=== PATIENT | male | born 1955 | race Hispanic/Latino ===

== ENCOUNTER 2018-09-07 13:05 | Inpatient (IN) | payer OTHER ==
[~2018-09-07] VITALS: Ht 167.6 cm; Wt 87.7 kg
--- OUTSIDE RECORDS SUMMARY | 2018-09-07 13:08 | XMS REPORT | Clinical Summary ---
Author Author MAD[facility] [place] Address Unknown Phone Unavailable Care Team Providers Care Real Estate Assessor Name Role Phone Sharpless PCP Unavailable Rafita Webb 31 Unavailable Allergies Comments Active Allergy Reactions Severity Noted Date Runny nose in contact with pollen, grass Seasonal Allergies Other (See 09/16/2017 Comments) Medications End Date Status Medication Sig Dispensed Refills Start Date Active metFORMIN (GLUCOPHAGE) Take 1,000 mg 0 1000 MG by mouth 2 tabletIndications: type 2 (two) times diabetes mellitus daily with breakfast and dinner. Active pravastatin (PRAVACHOL) Take 10 mg by 0 10 MG tabletIndications: mouth daily hyperlipidemia with dinner. Active glipiZIDE (GLUCOTROL) 5 Take 5 mg by 0 MG tabletIndications: mouth 2 (two) type 2 diabetes mellitus times daily with breakfast and dinner. Active terazosin (HYTRIN) 2 MG Take 2 mg by 0 capsuleIndications: mouth benign prostatic nightly. hyperplasia with lower urinary tract sx Active budesonide-formoterol Inhale 2 0 (SYMBICORT) 160-4.5 puffs by mcg/actuation inhaler mouth via inhaler 2 (two) times daily with breakfast and dinner. 09/24/2018 Active aspirin 81 MG chewable Take 1 tablet 30 tablet 11 tablet (81 mg total) 8 by mouth daily. 09/23/2018 Active atorvastatin (LIPITOR) 40 Take 1 tablet 30 tablet 11 MG tablet (40 mg total) 8 by mouth nightly. 09/24/2018 Active clopidogrel (PLAVIX) 75 Take 1 tablet 30 tablet 11 02/20/201 mg tablet (75 mg total) 8 by mouth daily. 09/23/2018 Active colchicine (COLCRYS) 0.6 Take 1 tablet 60 tablet 11 mg tablet (0.6 mg 8 total) by mouth 2 (two) times daily. 09/24/2018 Active furosemide (LASIX) 20 MG Take 1 tablet 20 tablet 0 tablet (20 mg total) 8 by mouth daily. 09/24/2018 Active lisinopril Take 1 tablet 30 tablet 11 (PRINIVIL,ZESTRIL) 2.5 MG (2.5 mg 8 tablet total) by mouth daily. 09/23/2018 Active metoprolol (LOPRESSOR) 50 Take 1 tablet 60 tablet 11 MG tablet (50 mg total) 8 by mouth 2 (two) times daily. 09/24/2018 Active spironolactone Take 1 tablet 30 tablet 11 (ALDACTONE) 25 MG tablet (25 mg total) 8 by mouth daily. 10/03/2017 traMADol (ULTRAM) 50 mg Take 1 tablet 30 tablet 0 tablet (50 mg total) 8 by mouth every 4 (four) hours as needed for up to 10 days. Max Daily Amount: 300 mg Active Problems Problem Noted Date ST elevation 09/18/2017 Coronary artery disease involving nonautologous biological coronary bypass 09/17/2017 graft with angina pectoris with documented spasm Acute postoperative pain 09/17/2017 S/P CABG x 2 09/17/2017 Ischemic cardiomyopathy 09/17/2017 Post-procedural fever 09/17/2017 Metabolic acidosis 09/17/2017 Acute respiratory insufficiency, postoperative 09/17/2017 Type 2 diabetes mellitus with hyperglycemia, without long-term current use 09/17/2017 of insulin CAD (coronary artery disease) 09/15/2017 Type 2 diabetes mellitus 09/15/2017 HLD (hyperlipidemia) 09/15/2017 HTN (hypertension) 09/15/2017 Seasonal allergic rhinitis 09/15/2017 Encounters Care Team Description Date Type Specialty Viral Moore MD Atherosclerosis of [place] coronary artery, angina presence unspecified, unspecified whether [place] or transplanted heart; S/P CABG (coronary artery bypass graft); S/P percutaneous transluminal coronary angioplasty 01/03/2018 Hospital Radiology Encounter Viral Moore MD Atherosclerosis of [place] coronary artery, angina presence unspecified, unspecified whether [place] or transplanted heart (Primary Dx); S/P CABG (coronary artery bypass graft); S/P percutaneous transluminal coronary angioplasty 12/17/2017 Outside Orders Central Scheduling 09/18/2017 Orders Only General Internal Medicine Gisselle Ray MD BYPASS,[place] CORONARY ADE/SVG 09/17/2017 Surgery Daniel Choudhury MD 09/17/2017 Anesthesia Event Gisselle Ray MD Coronary artery disease involving nonautologous biological coronary bypass graft with angina pectoris with documented spasm (HCC) (Primary Dx); Post-procedural fever; Acute postoperative pain; Metabolic acidosis; Acute respiratory insufficiency, postoperative; S/P CABG x 2; Ischemic cardiomyopathy; Type 2 diabetes mellitus with hyperglycemia, without long-term current use of insulin (HCC); ST elevation; Elevated troponin; Essential hypertension 09/15/2017 Hospital Cardiology - Encounter 09/23/2017 after 09/06/2017 Family History Medical History Relation Name Comments Leukemia Cousin Relation Name Status Comments Cousin Social History Date Tobacco Use Types Packs/Day Years Used Never Smoker Smokeless Tobacco: Never Used Alcohol Use Drinks/Week oz/Week Comments No Sex Assigned at Date Recorded Not on file Industry Job Start Date Occupation Not on file Not on file Not on file Travel End Travel History Travel Start No recent travel history available. Last Filed Vital Signs Time Taken Vital Sign Reading 09/23/2017 7:12 PM BAR [facility]ELDER Blood Pressure 105/65 09/23/2017 7:45 PM BAR [facility]ELDER Pulse 96 09/23/2017 7:12 PM BAR [facility] Temperature 37.1 C (98.8 F) 09/23/2017 7:45 PM BAR [facility]ELDER Respiratory Rate 20 09/23/2017 7:47 PM BAR [facility]DER Oxygen Saturation 95% 09/22/2017 7:42 AM BAR [facility]ELDER Inhaled Oxygen 21% Concentration 09/23/2017 3:45 AM BAR [facility]ELDER Weight 92.8 kg (204 lb 8 oz) 09/15/2017 10:30 PM BAR WELDER Height 167 cm (5' 5.75") 09/23/2017 3:45 AM BAR [facility]ELDER Body Mass Index 33.26 Plan of Treatment Not on file Implants Device Identifier Shelf Expiration Date Model / Serial / Lot Implanted Type Area Manufactur er 05/04/2022 [id number] / / [id number] Sternal Zipfix Ndl Strl Cardiovasc N/A: Chest SYNTHES:SY [id number] - [id number] yolanda Jean [employer] Implanted: Qty: 2 on 09/17/2017 by Gisselle Ray MD Procedures Comments Procedure Name Priority Date/Time Associated Diagnosis MR CARDIAC WITHOUT & WITH Routine 01/03/2018 Atherosclerosis of [place] CONTRAST 12:55 PM CDT coronary artery, angina presence unspecified, unspecified whether [place] or transplanted heart S/P CABG (coronary artery bypass graft) S/P percutaneous transluminal coronary angioplasty POCT-CREATININE Routine 01/03/2018 11:50 AM CDT RHYTHM STRIP - SCAN 10/10/2017 12:01 PM BAR [facility]ELDER PERMANENT LAB REPORT - 09/26/2017 SCAN 8:20 AM BAR [facility]DER RHYTHM STRIP - SCAN 09/26/2017 8:20 AM BAR [facility]DER POCT-GLUCOSE METER Routine 09/23/2017 5:19 PM BAR [facility]DER POCT-GLUCOSE METER Routine 09/23/2017 12:07 PM [facility]DER POCT-GLUCOSE METER Routine 09/23/2017 7:30 AM BAR [facility]ELDER CBC W/PLT COUNT & AUTO Routine 09/23/2017 DIFFERENTIAL 3:56 AM BAR WELDER BASIC METABOLIC PANEL (7) Routine 09/23/2017 3:56 AM BAR [facility] CBC W/PLT COUNT & AUTO Routine 09/23/2017 DIFFERENTIAL 3:56 AM BAR [facility]DER POCT-GLUCOSE METER Routine 09/22/2017 8:34 PM BAR [facility]DER POCT-GLUCOSE METER Routine 09/22/2017 5:14 PM BAR [facility]ELDER POCT-GLUCOSE METER Routine 09/22/2017 12:29 PM BAR [facility]DER POCT-GLUCOSE METER Routine 09/22/2017 8:36 AM BAR [facility]ELDER (MANUAL DIFFERENTIAL) Routine 09/22/2017 4:53 AM BAR [facility]EL[facility] CBC W/PLT COUNT & AUTO Routine 09/22/2017 DIFFERENTIAL 4:53 AM BAR [facility]DER MAGNESIUM Routine 09/22/2017 4:53 AM BAR [facility]ELDER BASIC METABOLIC PANEL (7) Routine 09/22/2017 4:53 AM BAR [facility]ELDER CBC W/PLT COUNT & AUTO Routine 09/22/2017 DIFFERENTIAL 4:53 AM BAR [facility]ELDER POCT-GLUCOSE METER Routine 09/21/2017 9:16 PM BAR WELDER POCT-GLUCOSE METER Routine 09/21/2017 5:36 PM BAR [facility]ELDER POCT-GLUCOSE METER Routine 09/21/2017 1:27 PM BAR [facility]ELDER POCT-GLUCOSE METER Routine 09/21/2017 7:50 AM BAR [facility]DER CBC W/PLT COUNT & AUTO Routine 09/21/2017 DIFFERENTIAL 4:52 AM BAR [facility]ELDER MAGNESIUM Routine 09/21/2017 4:52 AM BAR WELDER BASIC METABOLIC PANEL (7) Routine 09/21/2017 4:52 AM BAR [facility]ELDER CBC W/PLT COUNT & AUTO Routine 09/21/2017 DIFFERENTIAL 4:52 AM BAR WELDER POCT-GLUCOSE METER Routine 09/20/2017 9:06 PM BAR WELDER POCT-GLUCOSE METER Routine 09/20/2017 5:22 PM BAR WELDER XR CHEST 1 VIEW Routine 09/20/2017 PORTABLE/BEDSIDE 4:31 PM BAR WELDER XR ABDOMEN 1 VIEW Routine 09/20/2017 4:31 PM BAR WELDER POCT-GLUCOSE METER Routine 09/20/2017 12:24 PM BAR [facility]ELDER XR CHEST 1 VIEW STAT 09/20/2017 PORTABLE/BEDSIDE 10:32 AM BAR WELDER POCT-GLUCOSE METER Routine 09/20/2017 8:24 AM BAR WELDER CBC W/PLT COUNT & AUTO Routine 09/20/2017 DIFFERENTIAL 3:03 AM BAR WELDER MAGNESIUM Routine 09/20/2017 3:03 AM BAR WELDER CBC W/PLT COUNT & AUTO Routine 09/20/2017 DIFFERENTIAL 3:03 AM BAR WELDER BASIC METABOLIC PANEL (7) Routine 09/20/2017 3:03 AM BAR WELDER POCT-GLUCOSE METER Routine 09/19/2017 8:37 PM BAR WELDER LACTIC ACID, VENOUS, STAT 09/19/2017 WHOLE BLOOD 8:37 PM BAR WELDER CREATINE KINASE (CK) Routine 09/19/2017 5:45 PM BAR WELDER POCT-GLUCOSE METER Routine 09/19/2017 5:21 PM BAR WELDER LACTIC ACID, VENOUS, Routine 09/19/2017 WHOLE BLOOD 4:43 PM BAR WELDER XR CHEST 1 VIEW STAT 09/19/2017 PORTABLE/BEDSIDE 3:58 PM BAR WELDER POCT-GLUCOSE METER Routine 09/19/2017 11:37 AM BAR WELDER LIPID PANEL Add-On 09/19/2017 9:03 AM BAR WELDER CREATINE KINASE (CK) STAT 09/19/2017 9:03 AM BAR WELDER XR CHEST 1 VIEW Routine 09/19/2017 PORTABLE/BEDSIDE 8:15 AM BAR WELDER CBC W/PLT COUNT & AUTO Routine 09/19/2017 DIFFERENTIAL 4:44 AM BAR WELDER MAGNESIUM Routine 09/19/2017 4:44 AM BAR WELDER CBC W/PLT COUNT & AUTO Routine 09/19/2017 DIFFERENTIAL 4:44 AM BAR WELDER BASIC METABOLIC PANEL (7) Routine 09/19/2017 4:44 AM BAR WELDER CREATINE KINASE (CK) STAT 09/19/2017 4:44 AM BAR WELDER POCT-GLUCOSE METER Routine 09/18/2017 9:30 PM BAR [facility]ELDER POCT-GLUCOSE METER Routine 09/18/2017 6:24 PM BAR [facility]ELDER ECHOCARDIOGRAM REPORT - 09/18/2017 SCAN 5:50 PM BAR WELDER TRANSFUSION SERVICE 09/18/2017 REPORT - SCAN 5:42 PM BAR WELDER OXYGEN SATURATION, STAT 09/18/2017 MEASURED 4:17 PM BAR WELDER CREATINE KINASE (CK) STAT 09/18/2017 4:17 PM BAR [facility]DER GLUCOSE-STAT LAB STAT 09/18/2017 2:38 PM BAR WELDER BLOOD GAS, ARTERIAL STAT 09/18/2017 2:38 PM BAR WELDER 2D ECHO W/ DOPPLER STAT 09/18/2017 (CW/PW/COLOR) 2:26 PM BAR WELDER ECG 12-LEAD Routine 09/18/2017 10:36 AM BAR WELDER Procedure Note - Interface, External Ris In - 09/18/2017 10:50 AM BAR WELDER Ventricula r Rate 110 BPM Atrial Rate 110 BPM P-R Interval 146 ms QRS Duration 112 ms Q-T Interval 350 ms QTC Calculatio n(Bazett) 473 ms P [place] 34 degrees R [place] -29 degrees T [place] 26 degrees Sinus tachycardi a Low voltage QRS Cannot rule out Inferior infarct (cited on or before 8) Anterolate ral injury pattern * ACUTE HI * Abnormal ECG When compared with ECG of 8 17:07, ST more elevated in Anterolate ral leads Nonspecifi c T wave abnormalit y has replaced inverted T waves in Lateral leads ECG 12-LEAD STAT 09/18/2017 10:36 AM BAR WELDER POCT-GLUCOSE METER Routine 09/18/2017 8:17 AM BAR [facility]ELDER TROPONIN I Routine 09/18/2017 8:17 AM BAR WELDER CREATINE KINASE (CK), Routine 09/18/2017 TOTAL AND MB 8:17 AM BAR WELDER CREATINE KINASE (CK) STAT 09/18/2017 8:17 AM BAR WELDER POCT-GLUCOSE METER Routine 09/18/2017 5:55 AM BAR WELDER XR CHEST 1 VIEW Routine 09/18/2017 PORTABLE/BEDSIDE 4:26 AM BAR WELDER CBC W/PLT COUNT & AUTO Routine 09/18/2017 DIFFERENTIAL 4:03 AM BAR [facility]DER PHOSPHORUS Routine 09/18/2017 4:03 AM BAR [facility]DER MAGNESIUM Routine 09/18/2017 4:03 AM BAR [facility]ELDER CBC W/PLT COUNT & AUTO Routine 09/18/2017 DIFFERENTIAL 4:03 AM BAR [facility]ELDER BASIC METABOLIC PANEL (7) Routine 09/18/2017 4:03 AM BAR [facility]ELDER POCT-GLUCOSE METER Routine 09/18/2017 4:01 AM BAR [facility]DER POCT-GLUCOSE METER Routine 09/18/2017 1:57 AM BAR [facility]DER POCT-GLUCOSE METER Routine 09/18/2017 1:08 AM BAR [facility]DER POCT-GLUCOSE METER Routine 09/17/2017 11:50 PM BAR [facility]DER MAGNESIUM Routine 09/17/2017 11:46 PM BAR [facility]ELDER CREATINE KINASE (CK), Routine 09/17/2017 TOTAL AND MB 11:46 PM BAR [facility]ELDER CREATINE KINASE (CK) STAT 09/17/2017 11:46 PM BAR [facility]ELDER POCT-GLUCOSE METER Routine 09/17/2017 10:26 PM BAR [facility]ELDER POCT-GLUCOSE METER Routine 09/17/2017 9:38 PM BAR [facility]ELDER CALCIUM, IONIZED STAT 09/17/2017 8:48 PM BAR [facility]EL[facility] LACTIC ACID, ARTERIAL, STAT 09/17/2017 WHOLE BLOOD 8:48 PM BAR [facility]ELDER BASIC METABOLIC PANEL (7) Routine 09/17/2017 8:39 PM BAR [facility]ELDER HGB/HCT (H&H) - STAT LAB STAT 09/17/2017 8:39 PM BAR [facility]ELDER GLUCOSE-STAT LAB STAT 09/17/2017 8:39 PM BAR [facility]EL[facility] POTASSIUM-STAT LAB STAT 09/17/2017 8:39 PM BAR [facility]ELDER SODIUM NA-STAT LAB STAT 09/17/2017 8:39 PM BAR [facility] BLOOD GAS, ARTERIAL STAT 09/17/2017 8:39 PM BAR [facility]ELDER MAGNESIUM STAT 09/17/2017 8:39 PM BAR [facility]ELDER RRL CRITICAL LABS STAT 09/17/2017 (ABG,NA,K,H&H,GLUCOSE) 8:39 PM BAR [facility]ELDER POCT-GLUCOSE METER Routine 09/17/2017 8:38 PM BAR [facility]ELDER POCT-GLUCOSE METER Routine 09/17/2017 6:42 PM BAR [facility]ELDER TRANSFUSION SERVICE 09/17/2017 REPORT - SCAN 5:43 PM BAR [facility] ECG 12-LEAD STAT 09/17/2017 5:07 PM [facility]EL[facility] TROPONIN I Routine 09/17/2017 5:02 PM BAR [facility]EL[facility] CREATINE KINASE (CK), Routine 09/17/2017 TOTAL AND MB 5:02 PM [facility] GLUCOSE-STAT LAB STAT 09/17/2017 5:00 PM BAR [facility] BLOOD GAS, ARTERIAL STAT 09/17/2017 5:00 PM BAR [facility] POCT-GLUCOSE METER Routine 09/17/2017 4:23 PM BAR [facility]EL[facility] XR CHEST 1 VIEW STAT 09/17/2017 PORTABLE/BEDSIDE 1:54 PM BAR [facility]ELDER (MANUAL DIFFERENTIAL) Routine 09/17/2017 1:50 PM BAR [facility] CBC W/PLT COUNT & AUTO Routine 09/17/2017 DIFFERENTIAL 1:50 PM BAR [facility]EL[facility] CBC W/PLT COUNT & AUTO STAT 09/17/2017 DIFFERENTIAL 1:50 PM BAR [facility] BASIC METABOLIC PANEL (7) Routine 09/17/2017 1:50 PM BAR [facility]EL[facility] LACTIC ACID, ARTERIAL, STAT 09/17/2017 WHOLE BLOOD 1:50 PM [facility] OXYGEN SATURATION, STAT 09/17/2017 MEASURED 1:50 PM BAR [facility]ELDER HGB/HCT (H&H) - STAT LAB STAT 09/17/2017 1:50 PM [facility] HEMOGLOBIN-STAT LAB STAT 09/17/2017 1:50 PM [facility]EL[facility] GLUCOSE-STAT LAB STAT 09/17/2017 1:50 PM [facility] CALCIUM, IONIZED STAT 09/17/2017 1:50 PM [facility] POTASSIUM-STAT LAB STAT 09/17/2017 1:50 PM BAR [facility] SODIUM NA-STAT LAB STAT 09/17/2017 1:50 PM [facility] BLOOD GAS, ARTERIAL STAT 09/17/2017 1:50 PM [facility] ANESTHESIA WILY Routine 09/17/2017 12:42 PM [facility] POCT-ACT Routine 09/17/2017 12:30 PM [facility] HGB/HCT (H&H) - STAT LAB STAT 09/17/2017 12:27 PM [facility] GLUCOSE-STAT LAB STAT 09/17/2017 12:27 PM [facility] POTASSIUM-STAT LAB STAT 09/17/2017 12:27 PM [facility] SODIUM NA-STAT LAB STAT 09/17/2017 12:27 PM [facility] BLOOD GAS, ARTERIAL STAT 09/17/2017 12:27 PM [facility] THROMBOELASTOGRAPH (TEG) STAT 09/17/2017 12:27 PM [facility] FIBRINOGEN STAT 09/17/2017 12:27 PM [facility] APTT STAT 09/17/2017 12:27 PM [facility] PROTHROMBIN TIME/INR STAT 09/17/2017 12:27 PM [facility] CALCIUM, IONIZED STAT 09/17/2017 12:27 PM BAR [facility]ELDER RRL CRITICAL LABS STAT 09/17/2017 (ABG,NA,K,H&H,GLUCOSE) 12:27 PM [facility] PLATELET COUNT Routine 09/17/2017 12:27 PM [facility]EL[facility] POCT-ACT Routine 09/17/2017 11:49 AM BAR [facility]ELDER HGB/HCT (H&H) - STAT LAB STAT 09/17/2017 11:17 AM [facility] GLUCOSE-STAT LAB STAT 09/17/2017 11:17 AM [facility] POTASSIUM-STAT LAB STAT 09/17/2017 11:17 AM BAR [facility]ELDER SODIUM NA-STAT LAB STAT 09/17/2017 11:17 AM [facility] BLOOD GAS, ARTERIAL STAT 09/17/2017 11:17 AM BAR [facility] CALCIUM, IONIZED STAT 09/17/2017 11:17 AM [facility]ELDER RRL CRITICAL LABS STAT 09/17/2017 (ABG,NA,K,H&H,GLUCOSE) 11:17 AM BAR [facility]ELDER POCT-ACT Routine 09/17/2017 11:06 AM [facility] POCT-ACT Routine 09/17/2017 10:49 AM [facility] POCT-ACT Routine 09/17/2017 10:12 AM BAR [facility]ELDER HGB/HCT (H&H) - STAT LAB STAT 09/17/2017 10:02 AM [facility] GLUCOSE-STAT LAB STAT 09/17/2017 10:02 AM [facility] POTASSIUM-STAT LAB STAT 09/17/2017 10:02 AM [facility]ELDER SODIUM NA-STAT LAB STAT 09/17/2017 10:02 AM [facility] BLOOD GAS, ARTERIAL STAT 09/17/2017 10:02 AM [facility] CALCIUM, IONIZED STAT 09/17/2017 10:02 AM BAR [facility]EL[facility] RRL CRITICAL LABS STAT 09/17/2017 (ABG,NA,K,H&H,GLUCOSE) 10:02 AM BAR [facility]EL[facility] HGB/HCT (H&H) - STAT LAB STAT 09/17/2017 8:44 AM [facility] GLUCOSE-STAT LAB STAT 09/17/2017 8:44 AM [facility] POTASSIUM-STAT LAB STAT 09/17/2017 8:44 AM BAR [facility]ELDER SODIUM NA-STAT LAB STAT 09/17/2017 8:44 AM [facility] BLOOD GAS, ARTERIAL STAT 09/17/2017 8:44 AM [facility] CALCIUM, IONIZED STAT 09/17/2017 8:44 AM BAR [facility]ELDER RRL CRITICAL LABS STAT 09/17/2017 (ABG,NA,K,H&H,GLUCOSE) 8:44 AM BAR [facility] ECG 12-LEAD Routine 09/17/2017 8:31 AM BAR [facility]ELDER WILY 09/17/2017 Coronary artery disease 8:04 AM [facility]EL[facility] without angina pectoris, unspecified vessel or lesion type, unspecified whether [place] or transplanted heart ENDOSCOPIC HARVEST,VEIN 09/17/2017 Coronary artery disease 8:04 AM [facility] without angina pectoris, unspecified vessel or lesion type, unspecified whether [place] or transplanted heart [place]PASS,[place] CORONARY 09/17/2017 Coronary artery disease ADE/SVG 8:04 AM BAR [facility] without angina pectoris, unspecified vessel or lesion type, unspecified whether [place] or transplanted heart POCT-GLUCOSE METER Routine 09/17/2017 5:50 AM BAR [facility]ELDER CBC W/PLT COUNT & AUTO Routine 09/17/2017 DIFFERENTIAL 4:00 AM BAR [facility]ELDER CBC W/PLT COUNT & AUTO Routine 09/17/2017 DIFFERENTIAL 4:00 AM BAR [facility]ELDER BASIC METABOLIC PANEL (7) Routine 09/17/2017 4:00 AM BAR [facility]ELDER PREPARE LEUKO-REDUCED RBC Routine 09/17/2017 12:37 AM BAR [facility]ELDER POCT-GLUCOSE METER Routine 09/16/2017 8:53 PM BAR [facility]ELDER POCT-GLUCOSE METER Routine 09/16/2017 4:56 PM BAR [facility]ELDER NM MUGA CARD IMAGING EQ Routine 09/16/2017 REST WM EF 3:18 PM BAR WELDER POCT-GLUCOSE METER Routine 09/16/2017 12:12 PM [facility]ELDER POCT-GLUCOSE METER Routine 09/16/2017 7:44 AM BAR [facility]ELDER URINALYSIS W/ MICROSCOPIC Routine 09/16/2017 7:42 AM BAR WELDER CBC W/PLT COUNT & AUTO Routine 09/16/2017 DIFFERENTIAL 4:26 AM BAR WELDER TYPE AND SCREEN, Routine 09/16/2017 AUTOMATED 4:26 AM BAR [facility]ELDER PFA-100 Routine 09/16/2017 4:26 AM BAR [facility]ELDER PLATELET AGGREGATION: Routine 09/16/2017 FUNCTION SCREEN 4:26 AM BAR [facility]ELDER APTT Routine 09/16/2017 4:26 AM BAR [facility]ELDER PROTHROMBIN TIME/INR Routine 09/16/2017 4:26 AM BAR [facility]ELDER CBC W/PLT COUNT & AUTO Routine 09/16/2017 DIFFERENTIAL 4:26 AM BAR WELDER HEMOGLOBIN A1C Routine 09/16/2017 4:26 AM BAR [facility]ELDER COMPREHENSIVE METABOLIC Routine 09/16/2017 PANEL 4:26 AM BAR [facility]ELDER POCT-GLUCOSE METER Routine 09/15/2017 9:54 PM BAR [facility]ELDER XR CHEST 2 VIEWS Routine 09/15/2017 9:01 PM BAR [facility]ELDER after 09/06/2017 Results * MR cardiac without & with IV contrast (01/03/2018 12:55 PM CDT) Narrative Performed At FINAL REPORT [facility] Cardiac MRI dated 03 January 2018 INDICATION: This is a 62 year-old male with diagnosis of ischemic heart disease presents for assessment. This study is performed in order to quantitate left ventricular function, and to determine myocardial viability and damage, in particular for the viability of the inferior wall. TECHNIQUE: Melani ACHIEVAMRI scanner. Morphologic and dynamic cine imaging were performed in multiple projections before and after contrast administration.Thereafter, gadolinium was administered, which was followed by viability/scar imaging.Finally, flow quantification sequences were performed to determine the degree of valvular dysfunction. Please refer to the contrast sheet scanned in the EPIC system for the amount and route of contrast given. Scanning blood pressure was 119/54. Patient weighs 205 pounds, with height of 66 inches. Body surface area is approximately 2.08 sq m. FINDINGS: The chest wall and mediastinum appears unremarkable. Patient is post median sternotomy. The pericardium and pulmonary arteries appear normal; no pericardial effusion is seen and the central pulmonary artery is normal in calibre. Limited imaging through the lungs reveals no gross abnormalities; MR is not optimised in the assessment of pulmonary parenchymal lung disease. The cardiac chambers demonstrate normal atrioventricular and ventriculoarterial concordance, and systemic and pulmonary venous return.The thoracic aorta is normal in course, caliber, and contour. There is no evidence of acute aortic pathology, such as dissection, intramural hematoma, or contained rupture. In the program director scouting images, the elevation of the right hemidiaphragm. Correlate clinically. The left ventricle is enlarged with overall moderate systolic dysfunction. Segmental wall motion and modality as are identified, specifically, much of the inferolateral wall is thin and akinetic (sparing the most basal segment), extending to the adjacent basal half of the inferior wall in the basal one of the inferoseptum, and hypokinesia is also identified in the anterolateral wall extending into the distal lateral wall. Quantitative values are as follows: OOE=030 cc; TXB=712 cc; stroke volume=83 cc; and ejection fraction=35%.Calculated absolute cardiac output=5.2 liters/min.Absolute left ventricular fofc=467 grams. Index QGPVR=552 cc/sq m confirming left ventricular enlargement. By visual estimation, the right ventricle is normal in size and function. Cine imaging and flow quantification reveals trace central mitral regurgitation, and regurgitant fraction=15%. Viability/scar imaging result is as follows: Majority of the inferior wall essentially has near transmural to transmural scar identified, sparing the most basal 1 cm of the inferior wall. Dense subendocardial scar is also seen in the basal one third of the inferoseptum though the middle one third of the inferoseptum is fully viable. The basal two third of the anteroseptum supplied by the LAD is fully viable. There is very thin subendocardial scar is seen in the distal septum. The apex is fully viable. The most basal anterior wall is fully viable and remainder of the anterior wall has been subendocardial/subendocardial scar present (25 - 50%), and viable myocardium is at least 4 to 5 mm in thickness. Whilst the most basal 1 cm of the inferolateral wall is viable, remainder of the inferolateral wall (segments 5 and 11) has near transmural to transmural scar (i.e. not viable), and this finding also extends to a small portion of the adjacent anterolateral wall. Remainder of the anterolateral wall (segments 6 and 12) only has been subendocardial scar with viable myocardium of 4 to 5 mm in thickness. The distal lateral wall has transmural scar present. Ventricular thrombus is not present. A degree of left atrial enlargement is noted. CONCLUSIONS: 1.The left ventricle is enlarged with overall moderate systolic dysfunction and segmental wall motion modalities as described above. Ejection fraction is quantified to be 35%.Quantitative left ventricular functional values are as described above. The major question is regarding the viability of the inferior wall. Best seen in the serial short axis orientation, majority of the inferior wall has near transmural to transmural scar present indicating non - viability, sparing the basal 1 cm of the inferior wall. There is also dense subendocardial scar seen in the basal inferoseptum. Majority of inferolateral wall also has near transmural to transmural scar present suggesting nonviability, and the distal lateral wall is also scarred. Majority of the LAD territory is viable though subendocardial scar is identified in the anterior wall with viable myocardium of at least 4 to 5 mm in thickness. The apex also viable. Much of the anterolateral wall is also viable. 2.Trace central mitral regurgitation. 3.Left atrial enlargement. Signed: Mahesh Haro MD Report Verified Date/Time:01/03/2018 14:45:08 Reading Location: [place] [id number] Cardiology MRI Procedure Note Interface, External Ris In - 01/03/2018 2:47 PM CDT FINAL REPORT Cardiac MRI dated 03 January 2018 INDICATION: This is a 62 year-old male with diagnosis of ischemic heart disease presents for assessment. This study is performed in order to quantitate left ventricular function, and to determine myocardial viability and damage, in particular for the viability of the inferior wall. TECHNIQUE: Melani ACHIEVA MRI scanner. Morphologic and dynamic cine imaging were performed in multiple projections before and after contrast administration. Thereafter, gadolinium was administered, which was followed by viability/scar imaging. Finally, flow quantification sequences were performed to determine the degree of valvular dysfunction. Please refer to the contrast sheet scanned in the EPIC system for the amount and route of contrast given. Scanning blood pressure was 119/54. Patient weighs 205 pounds, with height of 66 inches. Body surface area is approximately 2.08 sq m. FINDINGS: The chest wall and mediastinum appears unremarkable. Patient is post median sternotomy. The pericardium and pulmonary arteries appear normal; no pericardial effusion is seen and the central pulmonary artery is normal in calibre. Limited imaging through the lungs reveals no gross abnormalities; MR is not optimised in the assessment of pulmonary parenchymal lung disease. The cardiac chambers demonstrate normal atrioventricular and ventriculoarterial concordance, and systemic and pulmonary venous return. The thoracic aorta is normal in course, caliber, and contour. There is no evidence of acute aortic pathology, such as dissection, intramural hematoma, or contained rupture. In the program director scouting images, the elevation of the right hemidiaphragm. Correlate clinically. The left ventricle is enlarged with overall moderate systolic dysfunction. Segmental wall motion and modality as are identified, specifically, much of the inferolateral wall is thin and akinetic (sparing the most basal segment), extending to the adjacent basal half of the inferior wall in the basal one of the inferoseptum, and hypokinesia is also identified in the anterolateral wall extending into the distal lateral wall. Quantitative values are as follows: OBA=051 cc; ZHZ=143 cc; stroke volume=83 cc; and ejection fraction=35%. Calculated absolute cardiac output=5.2 liters/min. Absolute left ventricular xehs=342 grams. Index YQIJZ=417 cc/sq m confirming left ventricular enlargement. By visual estimation, the right ventricle is normal in size and function. Cine imaging and flow quantification reveals trace central mitral regurgitation, and regurgitant fraction=15%. Viability/scar imaging result is as follows: Majority of the inferior wall essentially has near transmural to transmural scar identified, sparing the most basal 1 cm of the inferior wall. Dense subendocardial scar is also seen in the basal one third of the inferoseptum though the middle one third of the inferoseptum is fully viable. The basal two third of the anteroseptum supplied by the LAD is fully viable. There is very thin subendocardial scar is seen in the distal septum. The apex is fully viable. The most basal anterior wall is fully viable and remainder of the anterior wall has been subendocardial/subendocardial scar present (25 - 50%), and viable myocardium is at least 4 to 5 mm in thickness. Whilst the most basal 1 cm of the inferolateral wall is viable, remainder of the inferolateral wall (segments 5 and 11) has near transmural to transmural scar (i.e. not viable), and this finding also extends to a small portion of the adjacent anterolateral wall. Remainder of the anterolateral wall (segments 6 and 12) only has been subendocardial scar with viable myocardium of 4 to 5 mm in thickness. The distal lateral wall has transmural scar present. Ventricular thrombus is not present. A degree of left atrial enlargement is noted. CONCLUSIONS: 1. The left ventricle is enlarged with overall moderate systolic dysfunction and segmental wall motion modalities as described above. Ejection fraction is quantified to be 35%. Quantitative left ventricular functional values are as described above. The major question is regarding the viability of the inferior wall. Best seen in the serial short axis orientation, majority of the inferior wall has near transmural to transmural scar present indicating non - viability, sparing the basal 1 cm of the inferior wall. There is also dense subendocardial scar seen in the basal inferoseptum. Majority of inferolateral wall also has near transmural to transmural scar present suggesting nonviability, and the distal lateral wall is also scarred. Majority of the LAD territory is viable though subendocardial scar is identified in the anterior wall with viable myocardium of at least 4 to 5 mm in thickness. The apex also viable. Much of the anterolateral wall is also viable. 2. Trace central mitral regurgitation. 3. Left atrial enlargement. Signed: Mahesh Haro MD Report Verified Date/Time: 01/03/2018 14:45:08 Reading Location: [place] [id number] Cardiology MRI Performing Organization Address City/[facility] Phone Number GE RIS * POC-Creatinine (01/03/2018 11:50 AM CDT) POC-Creatinine 0.7Comment: TESTED AT [facility] 0.6 - 1.3 mg/dL [address] POC-EGFR 114 mL/min/1.73M2 [facility] Specimen Blood Performing Organization Address [facility] [place] [address] [facility] * RHYTHM STRIP - SCAN (10/10/2017 12:01 PM BAR WELDER) Only the most recent of 2 results within the time period is included. Narrative Performed At * PERMANENT LAB REPORT - SCAN (09/26/2017 8:20 AM BAR WELDER) Narrative Performed At * POC-Glucose meter (09/23/2017 5:19 PM BAR WELDER) Only the most recent of 37 results within the time period is included. POC-Glucose Meter 180 (H)Comment: TESTED AT 70 - 110 mg/dL [address] [id number] Specimen Blood Performing Organization Address [facility] Facility[facility] Phone Number [address] [address] [phone] [place] [address] * CBC with platelet count + automated diff (09/23/2017 3:56 AM BAR WELDER) Only the most recent of 9 results within the time period is included. WBC 18.5 (H) 3.5 - 10.5 K/L [facility] RBC 3.91 (L) 4.63 - 6.08 M/L [facility] Hemoglobin 10.3 (L) 13.7 - 17.5 GM/DL [facility] Hematocrit 32.5 (L) 40.1 - 51.0 % [facility] MCV 83.1 79.0 - 92.2 fL [facility] MCH 26.3 25.7 - 32.2 pg [facility] MCHC 31.7 (L) 32.3 - 36.5 GM/DL [facility] RDW 13.4 11.6 - 14.4 % [facility] Platelets 420 150 - 450 K/CU MM [facility] MPV 9.4 9.4 - 12.4 fL [facility] nRBC 0 0 - 0 /100 WBC [facility] % Neutros 72 % [facility] % Lymphs 12 % [facility] % Monos 10 % [facility] % Eos 2 % [facility] % Baso 1 % [facility] # Neutros 13.27 (H) 1.78 - 5.38 K/L [facility] # Lymphs 2.16 1.32 - 3.57 K/L [facility] # Monos 1.84 (H) 0.30 - 0.82 K/L [facility] # Eos 0.39 0.04 - 0.54 K/L [facility] # Baso 0.10 (H) 0.01 - 0.08 K/L [facility] Immature 4 (H) 0 - 1 % [facility] Granulocytes-Relative [facility] Specimen Blood - Arm, Right Performing Organization Address City/[facility]/Zipcode Phone Number [phone] [address] [place] [address] [facility] * Basic Metabolic Panel (09/23/2017 3:56 AM BAR WELDER) Only the most recent of 9 results within the time period is included. Sodium 132 (L) 136 - 145 meq/L [facility] Potassium 3.9 3.5 - 5.1 meq/L [facility] Chloride 100 98 - 107 meq/L [facility] CO2 23 22 - 29 meq/L [facility] BUN 13 7 - 21 mg/dL [facility] Creatinine 0.75 0.57 - 1.25 mg/dL [facility] Glucose 149 (H) 70 - 105 mg/dL [facility] Calcium 8.1 (L) 8.4 - 10.2 mg/dL [facility] EGFR 106Comment: ESTIMATED GFR IS mL/min/1.73 sq m [facility] NOT ACCURATE CREATININE [facility] CLEARANCE IN PREDICTING GLOMERULAR FILTRATION RATE. ESTIMATED GFR IS NOT APPLICABLE FOR DIALYSIS PATIENTS. Specimen Blood - Arm, Right Performing Organization Address City/[facility]/Zipcode Phone Number [phone] [address] [place] [address] [facility] * Manual Differential (09/22/2017 4:53 AM BAR WELDER) Only the most recent of 2 results within the time period is included. % Neutros (manual) 71 % [facility] % Lymphs (manual) 11 % [facility] % Monos (manual) 13 % [facility] % Eos (manual) 2 % [facility] % Baso (manual) 0 % [facility] % Metamyelo (manual) 1 (H) 0 - 0 % [facility] % Myelo (manual) 2 (H) 0 - 0 % [facility] # Neutros (manual) 10.79 (H) 1.80 - 8.00 K/L [facility] # Lymphs (manual) 1.67 1.48 - 4.50 K/L [facility] # Monos (manual) 1.98 (H) 0.00 - 1.30 K/L [facility] # Eos (manual) 0.30 0.00 - 0.50 K/L [facility] # Baso (manual) 0.00 0.00 - 0.20 K/L [facility] # Metamyelo (manual) 0.15 (H) 0.00 - 0.00 K/L [facility] # Myelo (manual) 0.30 (H) 0.00 - 0.00 K/L [facility] Total Counted 100 [facility] WBC Morphology Normal [facility] Platelet Morphology Normal [facility] RBC Morphology Normal [facility] Specimen Blood - Arm, Left Performing Organization Address City/[facility]/Zipcode Phone Number [phone] [address] [place] [address] [facility] * Magnesium (09/22/2017 4:53 AM BAR WELDER) Only the most recent of 7 results within the time period is included. Magnesium 2.1 1.6 - 2.6 mg/dL [facility] Specimen Blood - Arm, Left Performing Organization Address City/[facility]/Zipcode Phone Number [phone] [address] [place] [address] [facility] * XR chest 1 view portable / bedside (09/20/2017 4:31 PM BAR WELDER) Only the most recent of 6 results within the time period is included. Narrative Performed At FINAL REPORT [facility] Chest one view compared to September 20, 2017 Discussion: There is ill-defined patchy opacity left lung lingular region and left lung base, overall similar. Mild pulmonary congestion unchanged. No effusion or pneumothorax. Signed: Hebert Abreu MD Report Verified Date/Time:09/20/2017 16:59:29 Reading Location: [address] Consult Reading Room Procedure Note Interface, External Ris In - 09/20/2017 5:01 PM BAR WELDER FINAL REPORT Chest one view compared to September 20, 2017 Discussion: There is ill-defined patchy opacity left lung lingular region and left lung base, overall similar. Mild pulmonary congestion unchanged. No effusion or pneumothorax. Signed: Hebert Abreu MD Report Verified Date/Time: 09/20/2017 16:59:29 Reading Location: [address] Consult Reading Room Performing Organization Address City/State/Zipcode Phone Number GE RIS * XR abdomen / KUB 1 view (09/20/2017 4:31 PM BAR WELDER) Narrative Performed At FINAL REPORT GE [facility] Two abdomen images Discussion: Air-filled large bowel loops are noted but there is no gross distention. No visible abnormal small bowel loops. No evidence of free intraperitoneal air. Air-filled stomach bubble is noted. Signed: Hebert Abreu MD Report Verified Date/Time:09/20/2017 17:00:20 Reading Location: [facility] C0[facility] Consult Reading Room Procedure Note Interface, External Ris In - 09/20/2017 5:02 PM BAR WELDER FINAL REPORT Two abdomen images Discussion: Air-filled large bowel loops are noted but there is no gross distention. No visible abnormal small bowel loops. No evidence of free intraperitoneal air. Air-filled stomach bubble is noted. Signed: Hebert Abreu MD Report Verified Date/Time: 09/20/2017 17:00:20 Reading Location: [facility] [id number] Consult Reading Room Performing Organization Address City/State/Zipcode Phone Number GE RIS * Lactic acid, venous, whole blood (09/19/2017 8:37 PM BAR WELDER) Only the most recent of 2 results within the time period is included. Lactate, Venous 2.0 0.5 - 2.2 mmol/L [facility] Specimen Blood - Arm, Left Narrative Performed At Effective 12/07/2015: Units/Reference Range Change [facility] New: 0.5-2.2 mmol/LPrevious: 5-20 mg/dL [facility] Performing Organization Address [facility] Facility[facility] [place] [address] [phone] [place] [address] * Creatine Kinase (CK) (09/19/2017 5:45 PM BAR WELDER) Only the most recent of 6 results within the time period is included. Total CK 864 (H) 29 - 200 U/L [facility] Specimen Blood - Arm, Left Performing Organization Address [facility] Facility[facility] Phone Number [address] [address] [facility] * Lipid panel (09/19/2017 9:03 AM BAR WELDER) Triglycerides 80 mg/dL [facility] Cholesterol 77 mg/dL [facility] HDL 25 mg/dL [facility] LDL Calculated 36 mg/dL [facility] Specimen Blood Narrative Performed At Triglyceride Reference Range: [facility] Low Risk <150 [facility] [id number] High Risk 200-499 Very High Risk>=500 Cholesterol Reference Range: Low Risk <200 [id number] High Risk>240 HDL Cholesterol Reference Range: Low Risk >=60 High Risk <40 LDL Cholesterol Reference Range: Optimal<100 Near [id number] Very High >=190 Performing Organization Address [facility] Phone Number [place] [phone] * ECHOCARDIOGRAM REPORT - SCAN (09/18/2017 5:50 PM BAR WELDER) Narrative Performed At * TRANSFUSION SERVICE REPORT - SCAN (09/18/2017 5:42 PM BAR WELDER) Only the most recent of 2 results within the time period is included. Narrative Performed At * Oxygen saturation, measured (09/18/2017 4:17 PM BAR WELDER) Only the most recent of 2 results within the time period is included. O2 Saturation (Measured) 57.1 % [facility] Specimen Blood - Central Venous Line Performing Organization Address [facility] Phone Number [address] * Glucose-Stat Lab (09/18/2017 2:38 PM BAR WELDER) Only the most recent of 8 results within the time period is included. Glucose 151 (H) 70 - 110 mg/dL [facility] Specimen Blood, Arterial - Central Venous Line Performing Organization Address [facility] [place] [address] [phone] [address] * Blood gas, arterial (09/18/2017 2:38 PM BAR WELDER) Only the most recent of 8 results within the time period is included. pH, Arterial 7.47 (H) 7.35 - 7.45 [facility] pCO2, Arterial 32 (L) 35 - 45 mmHg [facility] pO2, Arterial 60 (L) 80 - 90 mmHg [facility] O2 Sat, Arterial 92.8 (L) 96.0 - 97.0 % [facility] HCO3, Arterial 23 21 - 29 mmol/L [facility] Base Excess, Arterial -0.3 -2.0 - 3.0 mmol/L [facility] Patient Temperature 37.0 C [facility] FIO2 100.0 % [facility] Specimen Blood, Arterial - Central Venous Line Performing Organization Address City/State/Zipcode Phone Number [phone] [address] [place] [address] MED[facility]ENTER * 2D Echo W/Doppler(CW/PW/Color) (09/18/2017 2:26 PM BAR WELDER) Ejection Fraction [facility] Narrative Performed At Transthoracic Echocardiography Report (TTE) [facility] Demographics [facility] Patient Name INDRIA, Date of Study 09/18/2017 RODRIGUEZ [id number] Male Visit Number [id number] Room Number 2C25 Number Date of Birth1955Referring Physician Gisselle Ray MD Age62 year(s)Trout Farmer Tre Asencio, Handy Alvarez MD Procedure Type of Study TTE procedure:2DECHO W DOPPLER(CW/PW/COLOR) (STAT) Indications:Initial evaluation of valvular or structural heart disease. 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 LVEF by Ndiaye's method of disk assessment is severely reduced (25-29%) . 2. The following segment(s) appear akinetic: apex, inferolateral, basal/mid anterolateral . The following segment(s) appear hypokinetic: anterior wall. 3. Mild mitral regurgitation. Previous Study No prior exam available for comparison. Signature Findings Technical Quality: Technically difficult exam. Rhythm/BPSinus tachycardia during the exam. Left Ventricle The LV apex is incompletely visualized due to foreshortening. The left ventricle is chamber size (by vol index) is normal (male - LVED vol - 34-74ml/m2). LV septal thickness is normal (0.6-1.1cm). LV posterior wall thickness is mildly increased (1.2-1.4cm) . Septal motion is abnormal, likely related to prior cardiac surgery . The following segment(s) appear akinetic: apex, inferolateral, basal/mid antereolateral . The following segment(s) appear hypokinetic: anterior wall. The other segments contract normally. Global LV systolic function severely reduced . LVEF by Ndiaye's method of disk assessment is severely reduced (25-29%) . The LVEF was measured using Ndiaye's single plane method (apical 4 chamber) . Degree of diastolic dysfunction (LAP assessment) is inconclusive due to mitral annular calcification . Left AtriumLA size is normal (16-34 ml/m2) . Right VentricleThe right ventricular chamber size and systolic function are within normal limits. RV pacing wire is visualized . Right Atrium RA cavity size is normal . RA pacing wire is visualized . Aortic Valve AoV is not well visualized. Mitral Valve Mild MV leaflet thickening. Mild mitral annular calcification. Mild mitral regurgitation. Tricuspid ValveTV structure is normal. A trace of tricuspid regurgitation. Pulmonic Valve Normal PV structure and function by limited views and Doppler. AortaAortic root size (SInus of Valsalva diameter) is normal . PericardiumNo pericardial effusion is visualized. IVC/SVC/PA/PV/PleuralThe inferior vena cava is adequately visualized. The inferior vena cava size is normal . The estimated RA pressure by IVC dynamics 0-5mmHg . Chambers/Structures Left Atrium LA Volume: 46.29 ml LA Area: 17.53 cm^2 LA Vol. Index: 23 ml/m^2 Left Ventricle LVIDd: 4.75 cm LVIDs: 4.2 cm LV Septum Diastolic: 1.16 cm LV PW Diastolic: 1.34 cmLV FS: 11.6 % LVEDV Ndiaye's:94.89 ml LVESV Ndiaye's:69.48 mlLVEDVI: 47 ml/m^2 LVEF Ndiaye's: 26.8 %LVESVI: 35 ml/m^2 LVOT Diameter: 2.18 cm Aorta Ao Root S of Destiny.: 2.54 cm Doppler/Quantitative Measurements Aortic Valve Peak Velocity: 0.88 m/sMean Velocity: 0.73 m/s Peak Gradient: 3.07 mmHg Mean Gradient: 2.21 mmHg AV Area (continuity): 2.92 cm^2 AV VTI: 14.33 cm AV DVI: 0.78 LVOT Peak Velocity: 0.73 m/s Peak Gradient: 2.15 mmHg Mean Velocity: 0.52 m/s Mean Gradient: 1.25 mmHg LVOT Diameter: 2.18 cmLVOT VTI: 11.21 cm LVOT Area: 3.73 cm^2LVOT SV:41.82 ml LVOT CO: 4.6 l/minLVOT CI: 2.29 l/min/m^2 Procedure Note Interface, External Ris In - 09/18/2017 5:04 PM BAR WELDER Transthoracic Echocardiography Report (TTE) Demographics Patient Name BARR, Date of Study 09/18/2017 RODRIGUEZ Gender Male Visit Number [id number] Race Unknown Room Number 2C25 Number Date of 1955 Referring Physician Gisselle Ray MD Age 62 year(s) Trout Farmer Tre James 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 LVEF by Ndiaye's method of disk assessment is severely reduced (25-29%) . 2. The following segment(s) appear akinetic: apex, inferolateral, basal/mid anterolateral . The following segment(s) appear hypokinetic: anterior wall. 3. Mild mitral regurgitation. Previous Study No prior exam available for comparison. Signature Findings Technical Quality: Technically difficult exam. Rhythm/BP Sinus tachycardia during the exam. Left Ventricle The LV apex is incompletely visualized due to foreshortening. The left ventricle is chamber size (by vol index) is normal (male - LVED vol - 34-74ml/m2). LV septal thickness is normal (0.6-1.1cm). LV posterior wall thickness is mildly increased (1.2-1.4cm) . Septal motion is abnormal, likely related to prior cardiac surgery . The following segment(s) appear akinetic: apex, inferolateral, basal/mid antereolateral . The following segment(s) appear hypokinetic: anterior wall. The other segments contract normally. Global LV systolic function severely reduced . LVEF by Ndiaye's method of disk assessment is severely reduced (25-29%) . The LVEF was measured using Ndiaye's single plane method (apical 4 chamber) . Degree of diastolic dysfunction (LAP assessment) is inconclusive due to mitral annular calcification . Left Atrium LA size is normal (16-34 ml/m2) . Right Ventricle The right ventricular chamber size and systolic function are within normal limits. RV pacing wire is visualized . Right Atrium RA cavity size is normal . RA pacing wire is visualized . Aortic Valve AoV is not well visualized. Mitral Valve Mild MV leaflet thickening. Mild mitral annular calcification. Mild mitral regurgitation. Tricuspid Valve TV structure is normal. A trace of tricuspid regurgitation. Pulmonic Valve Normal PV structure and function by limited views and Doppler. Aorta Aortic root size (SInus of Valsalva diameter) is normal . Pericardium No pericardial effusion is visualized. IVC/SVC/PA/PV/Pleural The inferior vena cava is adequately visualized. The inferior vena cava size is normal . The estimated RA pressure by IVC dynamics 0-5mmHg . Chambers/Structures Left Atrium LA Volume: 46.29 ml LA Area: 17.53 cm^2 LA Vol. Index: 23 ml/m^2 Left Ventricle LVIDd: 4.75 cm LVIDs: 4.2 cm LV Septum Diastolic: 1.16 cm LV PW Diastolic: 1.34 cm LV FS: 11.6 % LVEDV Ndiaye's:94.89 ml LVESV Ndiaye's:69.48 ml LVEDVI: 47 ml/m^2 LVEF Ndiaye's: 26.8 % LVESVI: 35 ml/m^2 LVOT Diameter: 2.18 cm Aorta Ao Root S of Destiny.: 2.54 cm Doppler/Quantitative Measurements Aortic Valve Peak Velocity: 0.88 m/s Mean Velocity: 0.73 m/s Peak Gradient: 3.07 mmHg Mean Gradient: 2.21 mmHg AV Area (continuity): 2.92 cm^2 AV VTI: 14.33 cm AV DVI: 0.78 LVOT Peak Velocity: 0.73 m/s Peak Gradient: 2.15 mmHg Mean Velocity: 0.52 m/s Mean Gradient: 1.25 mmHg LVOT Diameter: 2.18 cm LVOT VTI: 11.21 cm LVOT Area: 3.73 cm^2 LVOT SV:41.82 ml LVOT CO: 4.6 l/min LVOT CI: 2.29 l/min/m^2 Performing Organization Address City/State/Zipcode Phone Number [facility] * ECG 12 lead (09/18/2017 10:36 AM BAR WELDER) Only the most recent of 3 results within the time period is included. Narrative Performed At Ventricular Rate 110 BPM GE MUSE Atrial Rate 110 BPM P-R Interval 146 ms QRS Duration 112 ms Q-T Interval 350 ms QTC Calculation(Bazett) 473 ms P [place] 34 degrees R [place] -29 degrees T [place] 26 degrees Sinus tachycardia Low voltage QRS Anterolateral injury pattern * ACUTE [place] * Abnormal ECG When compared with ECG of 17-SEP-2017 17:07, ST more elevated in Anterolateral leads Confirmed by MD MEJIA JORGE ([id number]) on 09/18/2017 4:59:37 PM Procedure Note Interface, External Ris In - 09/18/2017 4:59 PM BAR WELDER Ventricular Rate 110 BPM Atrial Rate 110 BPM P-R Interval 146 ms QRS Duration 112 ms Q-T Interval 350 ms QTC Calculation(Bazett) 473 ms P [place] 34 degrees R [place] -29 degrees T [place] 26 degrees Sinus tachycardia Low voltage QRS Anterolateral injury pattern * ACUTE [place] * Abnormal ECG When compared with ECG of 17-SEP-2017 17:07, ST more elevated in Anterolateral leads Confirmed by MD MEJIA JORGE ([id number]) on 09/18/2017 4:59:37 PM Performing Organization Address City/[facility] Phone Number [employer] * Troponin I (09/18/2017 8:17 AM BAR WELDER) Only the most recent of 2 results within the time period is included. Troponin I 47.02 (HH) 0.00 - 0.03 ng/mL [facility] Specimen Blood - Line, Arterial Narrative Performed At Troponin I (TnI) levels must be interpreted in the context of the presenting [facility] symptoms and the clinical findings. Elevated TnI levels indicate myocardial [facility] damage, but are not specific for ischemic heart disease. Elevated TnI levels are seen in patients with other cardiac conditions (including myocarditis and congestive heart failure), and slight TnI elevations occur in patients with other conditions, including sepsis, renal failure, acidosis, acute neurological disease, and persistent tachyarrhythmia. Performing Organization Address City/[facility]/[employer] Phone Number [facility] [address] * Creatine Kinase (CK), Total and MB (09/18/2017 8:17 AM BAR WELDER) Only the most recent of 3 results within the time period is included. Total CK 2,037 (H) 29 - 200 U/L [facility] CK-MB 123.6 (H) 0.0 - 6.6 ng/mL [facility] MB Relative Index 6.1 % [facility] Specimen Blood - Line, Arterial Narrative Performed At CK-MB Reference Range: [facility] <6.7Normal [facility] 6.7-10.0Borderline >10.0 Abnormal Performing Organization Address City/[facility] Phone Number [address] * Phosphorus (09/18/2017 4:03 AM BAR WELDER) Phosphorus 3.1 2.3 - 4.7 mg/dL [facility] Specimen Blood Performing Organization Address City/[facility] Phone Number [address] * Calcium, Ionized (09/17/2017 8:48 PM BAR WELDER) Only the most recent of 6 results within the time period is included. Calcium, Ion 1.15 1.12 - 1.27 mmol/L [facility] pH, Blood 7.42 [facility] Specimen Blood Performing Organization Address City/[facility] Phone Number [address] * Lactic acid, arterial, whole blood (09/17/2017 8:48 PM BAR WELDER) Only the most recent of 2 results within the time period is included. Lactate, Art 2.5 (H) 0.5 - 2.2 mmol/L [facility] Specimen Blood, Arterial Narrative Performed At Effective 12/07/2015: Units/Reference Range Change [facility] New: 0.5-2.2 mmol/LPrevious: 5-20 mg/dL [facility] Performing Organization Address City/[facility] Phone Number [address] * Potassium-Stat Lab (09/17/2017 8:39 PM BAR WELDER) Only the most recent of 6 results within the time period is included. Potassium 3.9 3.6 - 5.5 meq/L [facility] Specimen Blood, Arterial Performing Organization Address [facility] Phone Number [address] * Sodium Na-Stat Lab (09/17/2017 8:39 PM BAR WELDER) Only the most recent of 6 results within the time period is included. Sodium 137 135 - 148 meq/L [facility] Specimen Blood, Arterial Performing Organization Address [facility] Phone Number [address] * HGB/HCT (H&H)-Stat Lab (09/17/2017 8:39 PM BAR WELDER) Only the most recent of 6 results within the time period is included. Hemoglobin 11.3 (L) 13.0 - 16.8 g/dL [facility] Hematocrit 33.0 (L) 40.0 - 50.0 % [facility] Specimen Blood, Arterial Performing Organization Address [facility] Phone Number [address] * Hemoglobin-Stat Lab (09/17/2017 1:50 PM BAR WELDER) Hemoglobin 11.0 (L) 13.0 - 16.8 g/dL [facility] Specimen Blood, Arterial Performing Organization Address City/[facility] Phone Number [place] [address] [place] [address] [facility] * ANESTHESIA WILY (09/17/2017 12:42 PM BAR WELDER) Narrative Performed At Bony Noriega MD 09/17/2017 12:42 PM WILY Date: 09/17/2017 9:06 AM Sex: Male Location: OR Requesting Physician: GISSELLE RAY Examiner: BONY NORIEGA CLIFFORD IntubatedSedated Patient screened for esoph disease: Yes Insertion: easy Probe Type: multiplane Modalities: 2D, CFM, CWD and PWD Aorta Size Dissection Plaque Thick Plaque Mobile Ascending Ao normal No < 3mm No Ao Arch normal No < 3mm No Descending Ao normal No < 3mm No Valves Annulus Stenosis Area (cm3) Gradient Regurgitation Leaflet Morphology Leaflet Motion Not Visualized Aortic valve normal none none normal normal Mitral valve normal none trivial (1+) normal normal Tricuspid normal none none normal normal Atria Size SEC Thrombus Tumor Device Right Atrium normal Left Atrium normal Interatrial Septum: Morphology: normal ASD: Shunt: Interventricular Septum: Morphology: normal Defect: Shunt: Pre Intervention Summary: resultsTEE probe inserted easily and atraumatically. LV size appears slightly enlarged. Spontaneous echo contrast visualized in LV apex. No true thrombus identified. LV systolic function reduced. Global hypokinesis. LV ejection fraction by Ndiaye's method of disks 41%. No LV hypertrophy. RV size and function appear normal. LA appendage without clot. LA appendage velocity >40cm/s. Trileaflet aortic valve. Mild aortic valve sclerosis. No aortic insufficiency or stenosis. Mitral valve leaflets move well. Mild central aortic regurgitation. LVOT diameter 2.0cm. Aortic valve annulus measures 2.3cm. Tricuspid valve leaflets move well. No tricuspid regurgitation. Mitral E/A inflow 0.7 consistent with Grade I diastolic dysfunction (impaired relaxation). Tissue doppler E' lateral mitral annulus velocity <8cm/s. 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 No mobile plaque. No dissection. No PFO via color doppler. Lipomatous hypertrophy of interatrial septum. No pericardial effusion. Findings communicated with Dr. Ray and surgical team. Post Intervention Summary:S/P ACB X2 LV function improves RV function normal No changes on aortic valve, Mitral Valve and tricuspid valve from preop No aortic dissection noticed on visualized portion of aorta Findings shared with Dr. Ray Procedure Note Bony Noriega MD - 09/17/2017 9:06 AM BAR WELDER WILY Date: 09/17/2017 9:06 AM Sex: Male Location: OR Requesting Physician: GISSELLE RAY Examiner: BONY NORIEGA CLIFFORD Intubated Sedated Patient screened for esoph disease: Yes Insertion: easy Probe Type: multiplane Modalities: 2D, CFM, CWD and PWD Aorta Size Dissection Plaque Thick Plaque Mobile Ascending Ao normal No < 3mm No Ao Arch normal No < 3mm No Descending Ao normal No < 3mm No Valves Annulus Stenosis Area (cm3) Gradient Regurgitation Leaflet Morphology Leaflet Motion Not Visualized Aortic valve normal none none normal normal Mitral valve normal none trivial (1+) normal normal Tricuspid normal none none normal normal Atria Size SEC Thrombus Tumor Device Right Atrium normal Left Atrium normal Interatrial Septum: Morphology: normal ASD: Shunt: Interventricular Septum: Morphology: normal Defect: Shunt: Pre Intervention Summary: resultsTEE probe inserted easily and atraumatically. LV size appears slightly enlarged. Spontaneous echo contrast visualized in LV apex. No true thrombus identified. LV systolic function reduced. Global hypokinesis. LV ejection fraction by Ndiaye's method of disks 41%. No LV hypertrophy. RV size and function appear normal. LA appendage without clot. LA appendage velocity >40cm/s. Trileaflet aortic valve. Mild aortic valve sclerosis. No aortic insufficiency or stenosis. Mitral valve leaflets move well. Mild central aortic regurgitation. LVOT diameter 2.0cm. Aortic valve annulus measures 2.3cm. Tricuspid valve leaflets move well. No tricuspid regurgitation. Mitral E/A inflow 0.7 consistent with Grade I diastolic dysfunction (impaired relaxation). Tissue doppler E' lateral mitral annulus velocity <8cm/s. 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 No mobile plaque. No dissection. No PFO via color doppler. Lipomatous hypertrophy of interatrial septum. No pericardial effusion. Findings communicated with Dr. Ray and surgical team. Post Intervention Summary: S/P ACB X2 LV function improves RV function normal No changes on aortic valve, Mitral Valve and tricuspid valve from preop No aortic dissection noticed on visualized portion of aorta Findings shared with Dr. Ray * POC ACTIVATED CLOTTING TIME (09/17/2017 12:30 PM BAR WELDER) Only the most recent of 5 results within the time period is included. Activated Clotting Time 125Comment: TESTED AT [facility] sec [address] Specimen Blood Performing Organization Address City/[facility] [place] [address] [facility] * Thromboelastograph (TEG) (09/17/2017 12:27 PM BAR WELDER) TEG Activated Clotting 5.3 4.0 - 7.0 minutes [facility] TEG Fibrinogen Activity 71.8 61.0 - 73.0 degrees [facility] TEG Platelet Aggregation 66.3 (H) 55.0 - 65.0 MM [facility] TEG-H Activated Clotting 5.6 4.0 - 7.0 minutes [facility] TEG-H Fibrinogen Activity 72.0 61.0 - 73.0 degrees [facility] TEG-H Platelet 59.0 55.0 - 65.0 MM [facility] Specimen Blood Performing Organization Address City/[facility] [place] [address] [facility] * aPTT (09/17/2017 12:27 PM BAR WELDER) Only the most recent of 2 results within the time period is included. PTT 35.2 22.5 - 36.0 seconds [facility] Specimen Blood Performing Organization Address City/[facility]/[place] [address] [facility] * Prothrombin time/INR (09/17/2017 12:27 PM BAR WELDER) Only the most recent of 2 results within the time period is included. Protime 21.1 (H) 11.7 - 14.7 seconds [facility] INR 1.8 <=5.9 [facility] Specimen Blood Narrative Performed At RECOMMENDED COUMADIN/WARFARIN INR THERAPY RANGES [facility] STANDARD DOSE: 2.0 - 3.0 Includes: PROPHYLAXIS for venous thrombosis, [facility] systemic embolization; TREATMENT for venous thrombosis and/or pulmonary embolus. HIGH RISK: Target INR is 2.5-3.5 for patients with mechanical heart valves. Performing Organization Address City/[facility] Phone Number [address] [address] [facility] * Fibrinogen (09/17/2017 12:27 PM BAR WELDER) Fibrinogen 328 225 - 434 mg/dl [facility] Specimen Blood Performing Organization Address [facility] Phone Number [address] [address] [facility] * Platelet count (09/17/2017 12:27 PM BAR WELDER) Platelets 237Comment: Discordant result 150 - 450 K/CU MM [facility] compared to previous result; [facility] clinical correlation required. Specimen Blood Performing Organization Address [facility] [place] [address] [phone] [place] [address] * Prepare Leuko-Red RBC (09/17/2017 12:37 AM BAR WELDER) CROSSMATCH COMPATIBLE SAFETRACE TX Unit ABO O Pos SAFETRACE TX UNIT NUMBER [id number] SAFETRACE TX Status READY SAFETRACE TX Blood Bank Product RED BLOOD CELLS SAFETRACE TX PRODUCT CODE [id number] SAFETRACE TX CROSSMATCH COMPATIBLE SAFETRACE TX Unit ABO O Pos SAFETRACE TX UNIT NUMBER [id number] SAFETRACE TX Status READY SAFETRACE TX Blood Bank Product RED BLOOD CELLS SAFETRACE TX PRODUCT CODE [id number] SAFETRACE TX Specimen Other Performing Organization Address [facility] Phone Number SAFETRACE [place] * NM muga study (rest) (09/16/2017 3:18 PM BAR WELDER) Narrative Performed At FINAL REPORT [facility] PROCEDURE:Resting RADIONUCLIDE VENTRICULOGRAM (MUGA scan) CPT CODE:87537 INDICATION: Chest pain, high probability of coronary artery disease, quantitate ventricular ejection fraction prior to coronary bypass HISTORY:Cardiac risk factors: Diabetes, hypertension, obesity, hyperlipidemia. Other cardiovascular history: Known CAD. Recent cardiac symptoms: Chest pain. PROTOCOL:Autologous red blood cells were labeled with Tc-99m pertechnetate by the in vitro method. 20.8 mCi of Tc-99m was injected intravenously as labeled red blood cells. Equilibrium gated planar cardiac images were obtained in multiple views at rest. IMAGING FINDINGS:Study quality is good. LV volume appears normal. RV volume appears normal. Gated images obtained at rest show mild hypokinesis of the anteroseptal and inferior real of the LV. LVEF is 46%. IMPRESSION: 1. Abnormal resting radionuclide ventriculogram. There is mild hypokinesis of anteroseptal and inferior real of the LV. LVEF is 46%. 2. No previous [facility] study for comparison. Signed: Misael Parker MD Report Verified Date/Time:09/16/2017 17:00:18 Reading Location: [address] Reading Room Procedure Note Interface, External Ris In - 09/16/2017 5:02 PM BAR WELDER FINAL REPORT PROCEDURE: Resting RADIONUCLIDE VENTRICULOGRAM (MUGA scan) CPT CODE: [id number] INDICATION: Chest pain, high probability of coronary artery disease, quantitate ventricular ejection fraction prior to coronary bypass HISTORY: Cardiac risk factors: Diabetes, hypertension, obesity, hyperlipidemia. Other cardiovascular history: Known CAD. Recent cardiac symptoms: Chest pain. PROTOCOL: Autologous red blood cells were labeled with Tc-99m pertechnetate by the in vitro method. 20.8 mCi of Tc-99m was injected intravenously as labeled red blood cells. Equilibrium gated planar cardiac images were obtained in multiple views at rest. IMAGING FINDINGS: Study quality is good. LV volume appears normal. RV volume appears normal. Gated images obtained at rest show mild hypokinesis of the anteroseptal and inferior real of the LV. LVEF is 46%. IMPRESSION: 1. Abnormal resting radionuclide ventriculogram. There is mild hypokinesis of anteroseptal and inferior real of the LV. LVEF is 46%. 2. No previous [facility] study for comparison. Signed: Misael Parker MD Report Verified Date/Time: 09/16/2017 17:00:18 Reading Location: [address] Reading Room Performing Organization Address City/State/Zipcode Phone Number [facility] * Urinalysis w/ Microscopic (09/16/2017 7:42 AM BAR WELDER) Color, UA Yellow [facility] Clarity, UA Clear [facility] Specific [place], UA 1.024 1.001 - 1.035 [facility] pH, UA 5.5 5.0 - 8.0 [facility] Protein, UA Negative Negative [facility] Glucose, UA Negative Negative [facility] Ketones, UA Negative Negative [facility] Bilirubin, UA Negative Negative [facility] Blood, UA Negative Negative [facility] Nitrite, UA Negative Negative [facility] Leukocytes, UA Negative Negative [facility] Urobilinogen, UA 3.0 (H) 0.2 - 1.0 mg/dL [facility] RBC, UA <1 /HPF [facility] WBC, UA 0 /HPF [facility] Mucus Many [facility] Hyaline Casts, UA 2 /LPF [facility] Specimen Source Urine, Clean Catch [facility] Specimen Urine - Urine, Clean Catch Performing Organization Address City/State/Zipcode Phone Number [facility] [address] [place] [address] [facility] * Platelet Aggregation: Function Screen (09/16/2017 4:26 AM BAR WELDER) Weak ADP 63 60 - 91 % [facility] Plt. Function Screen 60-100% indicates normal [facility] Interpretation platelet function [facility] Pathologist: Zeinab Parikh MD (electronic [facility] Platelets 317 150 - 450 K/CU MM [facility] Specimen Blood Narrative Performed At for patients on clopidogrel in past two weeks [facility] Performing Organization Address [facility] Phone Number [address] * Type and screen, automated (09/16/2017 4:26 AM BAR WELDER) ABO/RH AUTOMATED (BEAKER) O POSITIVE [facility] Ab Scrn NEGATIVE [facility] Specimen Blood Performing Organization Address [facility] Phone Number [address] * PFA-100 (09/16/2017 4:26 AM BAR WELDER) COL/EPI Closure Time >300 (H) 78 - 191 Seconds [facility] COL/ADP Closure Time 83 43 - 122 Seconds [facility] Platelets 317 150 - 450 K/CU MM [facility] Specimen Blood Narrative Performed At for patients on aspirin in past 2 weeks [facility] Performing Organization Address City/[facility] Phone Number [place] [phone] [place] [address] * Hemoglobin A1c (09/16/2017 4:26 AM BAR WELDER) Hemoglobin A1C 8.1 (H) 4.3 - 6.1 % [facility] Specimen Blood Performing Organization Address City/[facility] Phone Number [place] [phone] [place] [address] * Comprehensive metabolic panel (09/16/2017 4:26 AM BAR WELDER) Protein, Total 7.3 6.0 - 8.3 gm/dL [facility] Albumin 3.7 3.5 - 5.0 g/dL [facility] Alkaline Phosphatase 73 40 - 150 U/L [facility] Total Bilirubin 0.5 0.2 - 1.2 mg/dL [facility] Sodium 137 136 - 145 meq/L [facility] Potassium 3.9 3.5 - 5.1 meq/L [facility] Chloride 104 98 - 107 meq/L [facility] CO2 23 22 - 29 meq/L [facility] BUN 17 7 - 21 mg/dL [facility] Creatinine 0.81 0.57 - 1.25 mg/dL [facility] Glucose 161 (H) 70 - 105 mg/dL [facility] Calcium 9.2 8.4 - 10.2 mg/dL [facility] AST 25 5 - 34 U/L [facility] ALT 29 6 - 55 U/L [facility] EGFR 97Comment: ESTIMATED GFR IS mL/min/1.73 sq m [facility] NOT ACCURATE CREATININE [facility] CLEARANCE IN PREDICTING GLOMERULAR FILTRATION RATE. ESTIMATED GFR IS NOT APPLICABLE FOR DIALYSIS PATIENTS. Specimen Blood Performing Organization Address City/State/Zipcode Phone Number [facility] [address] [place] [address] [facility]ENTER * XR chest 2 views (09/15/2017 9:01 PM BAR WELDER) Narrative Performed At FINAL REPORT [place] INDICATION: Preop COMPARISON: None TECHNIQUE: Frontal and lateral views of the chest. FINDINGS: Lungs and pleura: Acute bilateral opacities. No effusion. Heart and mediastinum: Normal heart size. Unremarkable mediastinal contours. Osseous structures: No acute abnormality. Additional findings: None. IMPRESSION: Patchy bilateral airspace disease is nonspecific and may reflect underinflation or atypical multifocal pneumonia in the appropriate clinical context. Signed: JR Barbosa Robert MD Report Verified Date/Time:09/15/2017 21:33:48 Reading Location: [address] Reading Room Procedure Note Interface, External Ris In - 09/15/2017 9:36 PM BAR WELDER FINAL REPORT INDICATION: Preop COMPARISON: None TECHNIQUE: Frontal and lateral views of the chest. FINDINGS: Lungs and pleura: Acute bilateral opacities. No effusion. Heart and mediastinum: Normal heart size. Unremarkable mediastinal contours. Osseous structures: No acute abnormality. Additional findings: None. IMPRESSION: Patchy bilateral airspace disease is nonspecific and may reflect underinflation or atypical multifocal pneumonia in the appropriate clinical context. Signed: JR Barbosa Robert MD Report Verified Date/Time: 09/15/2017 21:33:48 Reading Location: [address] Reading Room Performing Organization Address City/State/Zipcode Phone Number [facility] after 09/06/2017 Advance Directives For more information, please contact: [facility] [address] [place] [address] Date Inactivated Comments Code Status Date Activated 09/23/2017 11:01 PM Full Code 09/17/2017 1:41 PM This code status was determined by: Patient 09/17/2017 1:41 PM Full Code 09/17/2017 1:32 PM This code status was determined by: Patient 09/17/2017 1:32 PM Full Code 09/15/2017 7:42 PM This code status was determined by: Patient
--- OUTSIDE RECORDS SUMMARY | 2018-09-07 13:09 | XMS REPORT ---
Author Author [facility] Address Unknown Phone Unavailable Care Team Providers Care [employer] Splicer Name Role Phone TERETRISTANH Unavailable Unavailable FORTUNATO RAY Unavailable Unavailable Problems This patient has no known problems. Allergies, Adverse Reactions, Alerts This patient has no known allergies or adverse reactions. Medications This patient has no known medications. Results Test Description Test Time Test Comments Text Results Atomic Results Result Comments , CARDIAC, WITHOUT 2018-01-03 14:45:00 Reason for Exam:->i25.10, z95.1, z98.61 FINAL REPORT Cardiac MRI dated 03 January [...] intramural hematoma, or contained rupture. In the cavalry scout images, the elevation of the right hemidiaphragm. [...] lateral wall. Quantitative values are as follows: GDE=306 cc; REE=954 cc; stroke volume=83 cc; and ejection fraction=35%. Calculated absolute cardiac output=5.2 liters/min. Absolute left ventricular sdcb=709 grams. Index HSQOW=629 cc/sq m confirming left ventricular enlargement. By visual estimation, the right ventricle is normal in size and function. Cine imaging and flow quantification reveals trace central mitral regurgitation, and regurgitant fraction=15%. Viability/scar imag ing result is as follows: Majority of the [...] regurgitation. 3. Left atrial enlargement. Signed: Mahesh Adamson MDReport Verified Date/Time: 01/03/2018 14:45:08 Reading Location: [place] [address] Cardiology MRI -CREATININE 2018-01-03 11:55:00 POC-CREATININE (BEAKER) (test zhlz=6454) 0.7 mg/dL 0.6-1.3 TESTED AT [address] [address] POC-EGFR (BEAKER) (test nqry=5999) 114 mL/min/1.73M2 POCT-GLUCOSE [id number] 17:24:00* Test Item Value Reference Range Comments POC-GLUCOSE METER (BEAKER) (test ypqw=4141) 180 mg/dL 70-110 TESTED AT [address] [address] POCT-GLUCOSE [id number] 12:09:00* Test Item Value Reference Range Comments POC-GLUCOSE METER (BEAKER) (test njfa=9911) 240 mg/dL 70-110 TESTED AT [address] [address] POCT-GLUCOSE [id number] 08:09:00* Test Item Value Reference Range Comments POC-GLUCOSE METER (BEAKER) (test xoso=0938) 154 mg/dL 70-110 TESTED AT [address] [address] BASIC METABOLIC [id number] 04:29:00* Test Item Value Reference Range Comments SODIUM (BEAKER) (test njmj=163) 132 meq/L 136-145 POTASSIUM (BEAKER) (test aved=663) 3.9 meq/L 3.5-5.1 CHLORIDE (BEAKER) (test eiak=185) 100 meq/L 98-107 CO2 (BEAKER) (test ufoe=066) 23 meq/L 22-29 BLOOD UREA NITROGEN (BEAKER) (test ftrz=740) 13 mg/dL 7-21 CREATININE (BEAKER) (test cfea=238) 0.75 mg/dL 0.57-1.25 GLUCOSE RANDOM (BEAKER) (test qbdk=237) 149 mg/dL 70-105 CALCIUM (BEAKER) (test fndx=795) 8.1 mg/dL 8.4-10.2 EGFR (BEAKER) (test rcao=0692) 106 mL/min/1.73 sq m ESTIMATED GFR IS NOT ACCURATE CREATININE CLEARANCE IN PREDICTING GLOMERULAR FILTRATION RATE. ESTIMATED GFR IS NOT APPLICABLE FOR DIALYSIS PATIENTS. CBC W/PLT COUNT & AUTO [id number] 04:12:00* Test Item Value Reference Range Comments WHITE BLOOD CELL COUNT (BEAKER) (test keum=119) 18.5 K/ L 3.5-10.5 RED BLOOD CELL COUNT (BEAKER) (test jofq=868) 3.91 M/ L 4.63-6.08 HEMOGLOBIN (BEAKER) (test xmvd=676) 10.3 GM/DL 13.7-17.5 HEMATOCRIT (BEAKER) (test fqdq=310) 32.5 % 40.1-51.0 MEAN CORPUSCULAR VOLUME (BEAKER) (test dvfp=395) 83.1 fL 79.0-92.2 MEAN CORPUSCULAR HEMOGLOBIN (BEAKER) (test nrpe=965) 26.3 pg 25.7-32.2 MEAN CORPUSCULAR HEMOGLOBIN CONC (BEAKER) (test bkle=816) 31.7 GM/DL 32.3-36.5 RED CELL DISTRIBUTION WIDTH (BEAKER) (test qhdm=696) 13.4 % 11.6-14.4 PLATELET COUNT (BEAKER) (test yaye=113) 420 K/CU MM 150-450 MEAN PLATELET VOLUME (BEAKER) (test oxpo=563) 9.4 fL 9.4-12.4 NUCLEATED RED BLOOD CELLS (BEAKER) (test rptg=552) 0 /100 WBC 0-0 NEUTROPHILS RELATIVE PERCENT (BEAKER) (test ovar=079) 72 % LYMPHOCYTES RELATIVE PERCENT (BEAKER) (test inlx=067) 12 % MONOCYTES RELATIVE PERCENT (BEAKER) (test yjpi=186) 10 % EOSINOPHILS RELATIVE PERCENT (BEAKER) (test luhy=697) 2 % BASOPHILS RELATIVE PERCENT (BEAKER) (test pzhn=456) 1 % NEUTROPHILS ABSOLUTE COUNT (BEAKER) (test klfd=811) 13.27 K/ L 1.78-5.38 LYMPHOCYTES ABSOLUTE COUNT (BEAKER) (test nztk=443) 2.16 K/ L 1.32-3.57 MONOCYTES ABSOLUTE COUNT (BEAKER) (test jqds=380) 1.84 K/ L 0.30-0.82 EOSINOPHILS ABSOLUTE COUNT (BEAKER) (test yuhq=186) 0.39 K/ L 0.04-0.54 BASOPHILS ABSOLUTE COUNT (BEAKER) (test ldua=142) 0.10 K/ L 0.01-0.08 IMMATURE GRANULOCYTES-RELATIVE PERCENT (BEAKER) (test mlet=5845) 4 % 0-1 POCT-GLUCOSE [id number] 20:42:00* Test Item Value Reference Range Comments POC-GLUCOSE METER (BEAKER) (test ywzp=3517) 214 mg/dL 70-110 TESTED AT [address] [address] POCT-GLUCOSE [id number] 17:47:00* Test Item Value Reference Range Comments POC-GLUCOSE METER (BEAKER) (test zbvu=4028) 149 mg/dL 70-110 TESTED AT [address] [address] POCT-GLUCOSE [id number] 12:34:00* Test Item Value Reference Range Comments POC-GLUCOSE METER (BEAKER) (test uxuj=5100) 235 mg/dL 70-110 TESTED AT [address] [address] (MANUAL DIFFERENTIAL)2017-09-22 09:10:00* Test Item Value Reference Range Comments NEUTROPHILS - REL (DIFF) (BEAKER) (test hive=3289) 71 % LYMPHOCYTES - REL (DIFF) (BEAKER) (test egsl=5664) 11 % MONOCYTES - REL (DIFF) (BEAKER) (test aoec=4701) 13 % EOSINOPHILS - REL (DIFF) (BEAKER) (test ayve=3845) 2 % BASOPHILS - REL (DIFF) (BEAKER) (test tvbw=0425) 0 % METAMYELOCYTES-REL (DIFF) (BEAKER) (test iaik=742) 1 % 0-0 MYELOCYTES-REL (DIFF) (BEAKER) (test wrjw=8384) 2 % 0-0 NEUTROPHILS - ABS (DIFF) (BEAKER) (test gube=2317) 10.79 K/ L 1.80-8.00 LYMPHOCYTES - ABS (DIFF) (BEAKER) (test fvdm=1148) 1.67 K/ L 1.48-4.50 MONOCYTES - ABS (DIFF) (BEAKER) (test qepe=8052) 1.98 K/ L 0.00-1.30 EOSINOPHILS - ABS (DIFF) (BEAKER) (test nepa=6919) 0.30 K/ L 0.00-0.50 BASOPHILS - ABS (DIFF) (BEAKER) (test tlun=4214) 0.00 K/ L 0.00-0.20 METAMYELOCTYES - ABS (DIFF) (BEAKER) (test vvmz=449) 0.15 K/ L 0.00-0.00 MYELOCYTES-ABS (DIFF) (BEAKER) (test jcak=5723) 0.30 K/ L 0.00-0.00 TOTAL COUNTED (BEAKER) (test bgzn=4451) 100 WBC MORPHOLOGY (BEAKER) (test rjdc=691) Normal PLT MORPHOLOGY (BEAKER) (test mwkf=304) Normal RBC MORPHOLOGY (BEAKER) (test kkgw=850) Normal CBC W/PLT COUNT & AUTO [id number] 09:10:00* Test Item Value Reference Range Comments WHITE BLOOD CELL COUNT (BEAKER) (test iqrx=704) 15.2 K/ L 3.5-10.5 RED BLOOD CELL COUNT (BEAKER) (test sihb=013) 3.68 M/ L 4.63-6.08 HEMOGLOBIN (BEAKER) (test lrrj=585) 10.1 GM/DL 13.7-17.5 HEMATOCRIT (BEAKER) (test bfwr=275) 31.0 % 40.1-51.0 MEAN CORPUSCULAR VOLUME (BEAKER) (test kgks=032) 84.2 fL 79.0-92.2 MEAN CORPUSCULAR HEMOGLOBIN (BEAKER) (test hwjf=791) 27.4 pg 25.7-32.2 MEAN CORPUSCULAR HEMOGLOBIN CONC (BEAKER) (test ciui=624) 32.6 GM/DL 32.3-36.5 RED CELL DISTRIBUTION WIDTH (BEAKER) (test ekil=783) 13.3 % 11.6-14.4 PLATELET COUNT (BEAKER) (test sjnv=124) 338 K/CU MM 150-450 MEAN PLATELET VOLUME (BEAKER) (test mnwn=950) 9.6 fL 9.4-12.4 NUCLEATED RED BLOOD CELLS (BEAKER) (test mlxq=662) 0 /100 WBC 0-0 IMMATURE GRANULOCYTES-RELATIVE PERCENT (BEAKER) (test trzz=5871) 3 % 0-1 POCT-GLUCOSE [id number] 08:38:00* Test Item Value Reference Range Comments POC-GLUCOSE METER (BEAKER) (test hawl=8072) 195 mg/dL 70-110 TESTED AT [address] [address] BASIC METABOLIC [id number] 06:01:00* Test Item Value Reference Range Comments SODIUM (BEAKER) (test qqbq=617) 132 meq/L 136-145 POTASSIUM (BEAKER) (test isxx=367) 3.8 meq/L 3.5-5.1 CHLORIDE (BEAKER) (test dkjd=189) 100 meq/L 98-107 CO2 (BEAKER) (test ngne=255) 23 meq/L 22-29 BLOOD UREA NITROGEN (BEAKER) (test holr=499) 16 mg/dL 7-21 CREATININE (BEAKER) (test mnui=098) 0.76 mg/dL 0.57-1.25 GLUCOSE RANDOM (BEAKER) (test txaq=118) 159 mg/dL 70-105 CALCIUM (BEAKER) (test hbdl=991) 7.8 mg/dL 8.4-10.2 EGFR (BEAKER) (test tbwv=2822) 104 mL/min/1.73 sq m ESTIMATED GFR IS NOT ACCURATE CREATININE CLEARANCE IN PREDICTING GLOMERULAR FILTRATION RATE. ESTIMATED GFR IS NOT APPLICABLE FOR DIALYSIS PATIENTS. [id number] 05:52:00* Test Item Value Reference Range Comments MAGNESIUM (BEAKER) (test pomc=781) 2.1 mg/dL 1.6-2.6 POCT-GLUCOSE [id number] 21:25:00* Test Item Value Reference Range Comments POC-GLUCOSE METER (BEAKER) (test fxgj=6414) 155 mg/dL 70-110 TESTED AT [address] [address] POCT-GLUCOSE [id number] 17:43:00* Test Item Value Reference Range Comments POC-GLUCOSE METER (BEAKER) (test ujsd=6197) 127 mg/dL 70-110 TESTED AT [address] [address] POCT-GLUCOSE [id number] 13:53:00* Test Item Value Reference Range Comments POC-GLUCOSE METER (BEAKER) (test adyy=0389) 196 mg/dL 70-110 TESTED AT [address] [address] POCT-GLUCOSE [id number] 08:02:00* Test Item Value Reference Range Comments POC-GLUCOSE METER (BEAKER) (test yyrf=1104) 192 mg/dL 70-110 TESTED AT [address] [address] CBC W/PLT COUNT & AUTO [id number] 06:13:00* Test Item Value Reference Range Comments WHITE BLOOD CELL COUNT (BEAKER) (test szps=259) 15.3 K/ L 3.5-10.5 RED BLOOD CELL COUNT (BEAKER) (test bigw=410) 3.61 M/ L 4.63-6.08 HEMOGLOBIN (BEAKER) (test pdfl=368) 10.0 GM/DL 13.7-17.5 HEMATOCRIT (BEAKER) (test rars=034) 30.6 % 40.1-51.0 MEAN CORPUSCULAR VOLUME (BEAKER) (test ekuv=996) 84.8 fL 79.0-92.2 MEAN CORPUSCULAR HEMOGLOBIN (BEAKER) (test anex=585) 27.7 pg 25.7-32.2 MEAN CORPUSCULAR HEMOGLOBIN CONC (BEAKER) (test cgwm=599) 32.7 GM/DL 32.3-36.5 RED CELL DISTRIBUTION WIDTH (BEAKER) (test dwkc=863) 13.5 % 11.6-14.4 PLATELET COUNT (BEAKER) (test zwvk=237) 290 K/CU MM 150-450 MEAN PLATELET VOLUME (BEAKER) (test niyw=299) 9.7 fL 9.4-12.4 NUCLEATED RED BLOOD CELLS (BEAKER) (test qkiw=205) 0 /100 WBC 0-0 NEUTROPHILS RELATIVE PERCENT (BEAKER) (test nlec=127) 74 % LYMPHOCYTES RELATIVE PERCENT (BEAKER) (test zdon=414) 13 % MONOCYTES RELATIVE PERCENT (BEAKER) (test kbhg=477) 11 % EOSINOPHILS RELATIVE PERCENT (BEAKER) (test lstf=590) 1 % BASOPHILS RELATIVE PERCENT (BEAKER) (test lmst=368) 0 % NEUTROPHILS ABSOLUTE COUNT (BEAKER) (test ixog=828) 11.34 K/ L 1.78-5.38 LYMPHOCYTES ABSOLUTE COUNT (BEAKER) (test xqta=155) 1.91 K/ L 1.32-3.57 MONOCYTES ABSOLUTE COUNT (BEAKER) (test knnk=774) 1.62 K/ L 0.30-0.82 EOSINOPHILS ABSOLUTE COUNT (BEAKER) (test gipo=003) 0.19 K/ L 0.04-0.54 BASOPHILS ABSOLUTE COUNT (BEAKER) (test sywg=787) 0.03 K/ L 0.01-0.08 IMMATURE GRANULOCYTES-RELATIVE PERCENT (BEAKER) (test sdgb=1525) 1 % 0-1 BASIC METABOLIC [id number] 05:58:00* Test Item Value Reference Range Comments SODIUM (BEAKER) (test ajcf=763) 135 meq/L 136-145 POTASSIUM (BEAKER) (test rzvi=994) 3.6 meq/L 3.5-5.1 CHLORIDE (BEAKER) (test megn=400) 100 meq/L 98-107 CO2 (BEAKER) (test qplf=087) 27 meq/L 22-29 BLOOD UREA NITROGEN (BEAKER) (test jwsq=012) 22 mg/dL 7-21 CREATININE (BEAKER) (test feyk=892) 0.72 mg/dL 0.57-1.25 GLUCOSE RANDOM (BEAKER) (test nytu=455) 147 mg/dL 70-105 CALCIUM (BEAKER) (test qhng=419) 7.9 mg/dL 8.4-10.2 EGFR (BEAKER) (test dvpr=2796) 111 mL/min/1.73 sq m ESTIMATED GFR IS NOT ACCURATE CREATININE CLEARANCE IN PREDICTING GLOMERULAR FILTRATION RATE. ESTIMATED GFR IS NOT APPLICABLE FOR DIALYSIS PATIENTS. [id number] 05:57:00* Test Item Value Reference Range Comments MAGNESIUM (BEAKER) (test wgxc=944) 2.3 mg/dL 1.6-2.6 POCT-GLUCOSE [id number] 21:15:00* Test Item Value Reference Range Comments POC-GLUCOSE METER (BEAKER) (test hxod=3075) 186 mg/dL 70-110 TESTED AT [facility] [address] [address] POCT-GLUCOSE [id number] 17:32:00* Test Item Value Reference Range Comments POC-GLUCOSE METER (BEAKER) (test aohi=0315) 203 mg/dL 70-110 TESTED AT [facility] [address] [address] RAD, ABDOMEN/KUB, 1 VIEW [id number] 17:00:00Reason for exam:->Ileus evaluation FINAL REPORT Two abdomen images Discussion: Air-filled la rge bowel loops are noted but there is no gross distention. No visible abnormal small bowel loops. No evidence of free intraperitoneal air. Air-filled stomach b ubble is noted. Signed: Hebert Abreu Verified Date/Time: 09/20/2017 17 :00:20 Reading Location: [address] Consult Reading Room Electronically s igned by: HEBERT ABREU M.D. on 09/20/2017 05:00 PM RAD, CHEST, 1 VIEW, NON [id number] 16:59:00Reason for exam:->evaluation of PTX after chest tube removal.FINAL REPORT Chest one view compared to September 20, 2017 Discussion: There is ill-defined patchy opacity left lung lingular region and left lung base, overall similar. Mild pulmonary congestion unchanged. No effusion or pneumothorax. Signed: Hebert Abreu Verified Date/Time: 09/20/2017 16:59:29 Reading Location: [facility] C013W Consult Reading Room - GLUCOSE [id number] 12:28:00* Test Item Value Reference Range Comments POC-GLUCOSE METER (BEAKER) (test dlje=4273) 246 mg/dL 70-110 TESTED AT [facility] [address] [address] RAD, CHEST, 1 VIEW, NON [id number] 11:46:00Reason for exam:->Pneumothorax eval, prior to chest tube removal.FINAL REPORT Chest one view compared to September 19 Discussion: Small left apical pneumothorax unchanged with left-sided chest tube in place. Cardiopulmonary appearance unchanged. Signed: Hebert Abreueport Verified Date/Time: 09/20/2017 11:46:45 Reading Location: [facility] Radiology Reading Room - GLUCOSE [id number] 08:28:00* Test Item Value Reference Range Comments POC-GLUCOSE METER (BEAKER) (test emjr=1927) 211 mg/dL 70-110 TESTED AT [facility] [address] [address] [id number] 05:53:00* Test Item Value Reference Range Comments MAGNESIUM (BEAKER) (test srae=743) 2.6 mg/dL 1.6-2.6 BASIC METABOLIC [id number] 05:53:00* Test Item Value Reference Range Comments SODIUM (BEAKER) (test vjkk=766) 134 meq/L 136-145 POTASSIUM (BEAKER) (test djqv=766) 4.1 meq/L 3.5-5.1 CHLORIDE (BEAKER) (test oyuw=007) 98 meq/L 98-107 CO2 (BEAKER) (test cpsi=852) 26 meq/L 22-29 BLOOD UREA NITROGEN (BEAKER) (test mluk=251) 28 mg/dL 7-21 CREATININE (BEAKER) (test usmh=546) 0.90 mg/dL 0.57-1.25 GLUCOSE RANDOM (BEAKER) (test srhz=319) 215 mg/dL 70-105 CALCIUM (BEAKER) (test rids=748) 8.6 mg/dL 8.4-10.2 EGFR (BEAKER) (test nruy=1237) 86 mL/min/1.73 sq m ESTIMATED GFR IS NOT ACCURATE CREATININE CLEARANCE IN PREDICTING GLOMERULAR FILTRATION RATE. ESTIMATED GFR IS NOT APPLICABLE FOR DIALYSIS PATIENTS. CBC W/PLT COUNT & AUTO [id number] 05:30:00* Test Item Value Reference Range Comments WHITE BLOOD CELL COUNT (BEAKER) (test liwz=466) 22.0 K/ L 3.5-10.5 RED BLOOD CELL COUNT (BEAKER) (test snlm=391) 3.95 M/ L 4.63-6.08 HEMOGLOBIN (BEAKER) (test optj=796) 10.8 GM/DL 13.7-17.5 HEMATOCRIT (BEAKER) (test otlx=573) 33.5 % 40.1-51.0 MEAN CORPUSCULAR VOLUME (BEAKER) (test sfbp=409) 84.8 fL 79.0-92.2 MEAN CORPUSCULAR HEMOGLOBIN (BEAKER) (test lfyb=478) 27.3 pg 25.7-32.2 MEAN CORPUSCULAR HEMOGLOBIN CONC (BEAKER) (test qhqm=662) 32.2 GM/DL 32.3-36.5 RED CELL DISTRIBUTION WIDTH (BEAKER) (test iner=364) 13.7 % 11.6-14.4 PLATELET COUNT (BEAKER) (test zaza=291) 275 K/CU MM 150-450 MEAN PLATELET VOLUME (BEAKER) (test jial=624) 10.5 fL 9.4-12.4 NUCLEATED RED BLOOD CELLS (BEAKER) (test ctvz=833) 0 /100 WBC 0-0 NEUTROPHILS RELATIVE PERCENT (BEAKER) (test flgj=879) 80 % LYMPHOCYTES RELATIVE PERCENT (BEAKER) (test oisa=355) 8 % MONOCYTES RELATIVE PERCENT (BEAKER) (test rygv=233) 9 % EOSINOPHILS RELATIVE PERCENT (BEAKER) (test vuqm=527) 0 % BASOPHILS RELATIVE PERCENT (BEAKER) (test nrlc=244) 0 % NEUTROPHILS ABSOLUTE COUNT (BEAKER) (test wycu=387) 17.65 K/ L 1.78-5.38 LYMPHOCYTES ABSOLUTE COUNT (BEAKER) (test ochm=040) 1.86 K/ L 1.32-3.57 MONOCYTES ABSOLUTE COUNT (BEAKER) (test mtax=062) 1.99 K/ L 0.30-0.82 EOSINOPHILS ABSOLUTE COUNT (BEAKER) (test bevk=160) 0.05 K/ L 0.04-0.54 BASOPHILS ABSOLUTE COUNT (BEAKER) (test xfaw=065) 0.07 K/ L 0.01-0.08 IMMATURE GRANULOCYTES-RELATIVE PERCENT (BEAKER) (test hmti=5120) 2 % 0-1 LACTIC ACID, VENOUS, WHOLE [id number] 21:03:00* Test Item Value Reference Range Comments LACTATE BLOOD VENOUS (2) (BEAKER) (test jurb=2420) 2.0 mmol/L 0.5-2.2 Effective 12/07/2015: Units/Reference Range ChangeNew: 0.5-2.2 mmol/L Previous: 5 -20 mg/dLPOCT-GLUCOSE [id number] 21:01:00* Test Item Value Reference Range Comments POC-GLUCOSE METER (AKER) (test kmnk=7288) 256 mg/dL 70-110 TESTED AT [address] [address] CREATINE KINASE (CK)2017-09-19 18:14:00* Test Item Value Reference Range Comments CREATINE KINASE TOTAL (AKER) (test wzpq=745) 864 U/L 29-200 POCT-GLUCOSE [id number] 17:27:00* Test Item Value Reference Range Comments POC-GLUCOSE METER ([facility]) (test ymdh=0467) 264 mg/dL 70-110 TESTED AT [address] [address] LACTIC ACID, VENOUS, WHOLE [id number] 17:22:00* Test Item Value Reference Range Comments LACTATE BLOOD VENOUS (2) (AKER) (test tukg=8474) 3.1 mmol/L 0.5-2.2 Specimen slightly hemolyzed Effective 12/07/2015: Units/Reference Range ChangeNew: 0.5-2.2 mmol/L Previous: 5 -20 mg/dLLIPID [id number] 16:20:00* Test Item Value Reference Range Comments TRIGLYCERIDES (BEAKER) (test fzyl=650) 80 mg/dL CHOLESTEROL (BEAKER) (test zpdx=775) 77 mg/dL HDL CHOLESTEROL (BEAKER) (test stqp=217) 25 mg/dL LDL CHOLESTEROL CALCULATED (AKER) (test piyv=224) 36 mg/dL Triglyceride Reference Range: Low Risk <150 Borderline 150-199 High Risk 200-499 Very High Risk >=500Cholesterol Reference Range: Low Risk <200 Borderline 200-239 High Risk >240HDL Cholesterol Reference Range: Low Risk >=60 High Risk <40LDL Cholesterol Reference Range: Optimal <100 Near Optimal 100-129 Borderline 130-159 High 160-189 Very High >=190 RAD, CHEST, 1 VIEW, NON [id number] 16:19:00Reason for exam:->Tachypnea, SOBShould this be performed at the bedside?->YesFINAL REPORT Chest one view compared to September 19, 2017 Discussion: There is pulmonary congestion with ill-defined airspace opacity left lower lung, unchanged. Drainage tubes in place. Tiny left apical pneumothorax is present unchanged. No effusion. IMPRESSIONS: No change Signed: Hebert Abreu Verified Date/Time: 09/19/2017 16:19:11 Reading Location: [address] Consult Reading Room - GLUCOSE [id number] 11:51:00* Test Item Value Reference Range Comments POC-GLUCOSE METER (BEAKER) (test uifn=2017) 331 mg/dL 70-110 Notified [facility]/TESTED AT [address] [address] RAD, CHEST, 1 VIEW, NON [id number] 09:45:00Reason for exam:->s/p cabg, CT in placeShould this be performed at the bedside?->YesFINAL REPORT Chest one view compared to September 18 Discussion: There is mild pulmonary congestion. There is a suspected trace left apical pneumothorax unchanged with left-sided chest tube in place. Cardiopulmonary appearance is overall similar. Signed: Hebert Abreu Verified Date/Time: 09/19/2017 09:45:07 Reading Location: [facility] Radiology Reading Room TINE KINASE (CK)2017-09-19 09:34:00* Test Item Value Reference Range Comments CREATINE KINASE TOTAL (BEAKER) (test akrp=483) 1029 U/L 29-200 [id number] 05:18:00* Test Item Value Reference Range Comments MAGNESIUM (BEAKER) (test hbka=995) 2.0 mg/dL 1.6-2.6 BASIC METABOLIC [id number] 05:18:00* Test Item Value Reference Range Comments SODIUM (BEAKER) (test gamw=661) 139 meq/L 136-145 POTASSIUM (BEAKER) (test zrfm=066) 4.2 meq/L 3.5-5.1 CHLORIDE (BEAKER) (test kexm=591) 102 meq/L 98-107 CO2 (BEAKER) (test dsma=808) 24 meq/L 22-29 BLOOD UREA NITROGEN (BEAKER) (test lmaa=062) 18 mg/dL 7-21 CREATININE (BEAKER) (test kxpc=234) 0.85 mg/dL 0.57-1.25 GLUCOSE RANDOM (BEAKER) (test vkmi=082) 274 mg/dL 70-105 CALCIUM (BEAKER) (test fmgj=663) 9.0 mg/dL 8.4-10.2 EGFR (BEAKER) (test frtl=8514) 91 mL/min/1.73 sq m ESTIMATED GFR IS NOT ACCURATE CREATININE CLEARANCE IN PREDICTING GLOMERULAR FILTRATION RATE. ESTIMATED GFR IS NOT APPLICABLE FOR DIALYSIS PATIENTS. CREATINE KINASE (CK)2017-09-19 05:18:00* Test Item Value Reference Range Comments CREATINE KINASE TOTAL (BEAKER) (test rzmx=488) 1173 U/L 29-200 CBC W/PLT COUNT & AUTO [id number] 05:05:00* Test Item Value Reference Range Comments WHITE BLOOD CELL COUNT (BEAKER) (test kqpq=032) 22.2 K/ L 3.5-10.5 RED BLOOD CELL COUNT (BEAKER) (test ztci=731) 3.79 M/ L 4.63-6.08 HEMOGLOBIN (BEAKER) (test fyxk=685) 10.4 GM/DL 13.7-17.5 HEMATOCRIT (BEAKER) (test zezs=648) 32.0 % 40.1-51.0 MEAN CORPUSCULAR VOLUME (BEAKER) (test tuna=996) 84.4 fL 79.0-92.2 MEAN CORPUSCULAR HEMOGLOBIN (BEAKER) (test fdvt=928) 27.4 pg 25.7-32.2 MEAN CORPUSCULAR HEMOGLOBIN CONC (BEAKER) (test zikw=335) 32.5 GM/DL 32.3-36.5 RED CELL DISTRIBUTION WIDTH (BEAKER) (test cinx=241) 13.8 % 11.6-14.4 PLATELET COUNT (BEAKER) (test kvzu=359) 235 K/CU MM 150-450 MEAN PLATELET VOLUME (BEAKER) (test hsmd=958) 9.8 fL 9.4-12.4 NUCLEATED RED BLOOD CELLS (BEAKER) (test lxpn=038) 0 /100 WBC 0-0 NEUTROPHILS RELATIVE PERCENT (BEAKER) (test bjmi=727) 83 % LYMPHOCYTES RELATIVE PERCENT (BEAKER) (test qwmv=326) 6 % MONOCYTES RELATIVE PERCENT (BEAKER) (test aluu=480) 10 % EOSINOPHILS RELATIVE PERCENT (BEAKER) (test ntvy=654) 0 % BASOPHILS RELATIVE PERCENT (BEAKER) (test hntx=532) 0 % NEUTROPHILS ABSOLUTE COUNT (BEAKER) (test ndte=361) 18.33 K/ L 1.78-5.38 LYMPHOCYTES ABSOLUTE COUNT (BEAKER) (test txam=320) 1.25 K/ L 1.32-3.57 MONOCYTES ABSOLUTE COUNT (BEAKER) (test xesf=872) 2.26 K/ L 0.30-0.82 EOSINOPHILS ABSOLUTE COUNT (BEAKER) (test ekcf=567) 0.00 K/ L 0.04-0.54 BASOPHILS ABSOLUTE COUNT (BEAKER) (test lhob=253) 0.02 K/ L 0.01-0.08 IMMATURE GRANULOCYTES-RELATIVE PERCENT (BEAKER) (test smmv=8270) 1 % 0-1 POCT-GLUCOSE [id number] 00:27:00* Test Item Value Reference Range Comments POC-GLUCOSE METER (BEAKER) (test iuid=4022) 214 mg/dL 70-110 TESTED AT [place] [id number] [facility] [address] POCT-GLUCOSE [id number] 18:26:00* Test Item Value Reference Range Comments POC-GLUCOSE METER (BEAKER) (test vwkc=6087) 206 mg/dL 70-110 TESTED AT [address] [address] CREATINE KINASE (CK)2017-09-18 16:56:00* Test Item Value Reference Range Comments CREATINE KINASE TOTAL (BEAKER) (test wgyv=599) 1818 U/L 29-200 OXYGEN SATURATION, [id number] 16:21:00* Test Item Value Reference Range Comments O2 SATURATION (MEASURED) (BEAKER) (test ehtu=0607) 57.1 % GLUCOSE-STAT [id number] 14:52:00* Test Item Value Reference Range Comments GLUCOSE RANDOM (BEAKER) (test rksw=509) 151 mg/dL 70-110 BLOOD GAS, [id number] 14:51:00* Test Item Value Reference Range Comments PH ARTERIAL (BEAKER) (test uxcg=904) 7.47 7.35-7.45 PCO2 ARTERIAL (BEAKER) (test tlqn=615) 32 mmHg 35-45 PO2 ARTERIAL (BEAKER) (test qfkc=701) 60 mmHg 80-90 O2 SATURATION ARTERIAL (BEAKER) (test luye=809) 92.8 % 96.0-97.0 HCO3 ARTERIAL (BEAKER) (test svlt=134) 23 mmol/L 21-29 BASE EXCESS ARTERIAL (BEAKER) (test dvvi=173) -0.3 mmol/L -2.0-3.0 PATIENT TEMPERATURE (BEAKER) (test mkgn=2415) 37.0 C FIO2 (BEAKER) (test cebf=6425) 100.0 % TROPONIN [id number] 09:08:00* Test Item Value Reference Range Comments TROPONIN I (BEAKER) (test ufja=928) 47.02 ng/mL 0.00-0.03 Troponin I (TnI) levels must be interpreted in the context of the presenting sym ptoms and the clinical findings. Elevated TnI levels indicate myocardial damage, but are not specific for ischemic heart disease. Elevated TnI levels are seen in patients with other cardiac conditions (including myocarditis and congestive h eart failure), and slight TnI elevations occur in patients with other conditions , including sepsis, renal failure, acidosis, acute neurological disease, and per sistent tachyarrhythmia.CREATINE KINASE (CK), TOTAL AND [id number] 08:59:00* Test Item Value Reference Range Comments CREATINE KINASE TOTAL (BEAKER) (test vkzf=872) 2037 U/L 29-200 CREATINE KINASE-MB (BEAKER) (test mxdw=126) 123.6 ng/mL 0.0-6.6 CREATINE KINASE-MB INDEX (BEAKER) (test qtsf=868) 6.1 % CK-MB Reference Range:<6.7 Normal6.7-10.0 Borderline>10.0 Abnormal CREATINE KINASE (CK)2017-09-18 08:53:00* Test Item Value Reference Range Comments CREATINE KINASE TOTAL (BEAKER) (test cnff=844) 2037 U/L 29-200 POCT-GLUCOSE [id number] 08:19:00* Test Item Value Reference Range Comments POC-GLUCOSE METER (BEAKER) (test psjr=5611) 139 mg/dL 70-110 TESTED AT [address] [address] POCT-GLUCOSE [id number] 06:03:00* Test Item Value Reference Range Comments POC-GLUCOSE METER (BEAKER) (test mekx=3021) 135 mg/dL 70-110 TESTED [address] [address] [address] [id number] 05:42:00* Test Item Value Reference Range Comments ACTIVATED CLOTTING TIME (BEAKER) (test pugh=017) 356 sec TESTED AT [address] [address] [id number] 05:42:00* Test Item Value Reference Range Comments ACTIVATED CLOTTING TIME (BEAKER) (test lqiz=326) 362 sec TESTED AT [address] [address] [id number] 05:42:00* Test Item Value Reference Range Comments ACTIVATED CLOTTING TIME (BEAKER) (test dczc=887) 472 sec TESTED AT [address] [address] [id number] 04:53:00* Test Item Value Reference Range Comments PHOSPHORUS (BEAKER) (test wnqx=100) 3.1 mg/dL 2.3-4.7 [id number] 04:53:00* Test Item Value Reference Range Comments MAGNESIUM (BEAKER) (test agzw=475) 1.8 mg/dL 1.6-2.6 BASIC METABOLIC [id number] 04:53:00* Test Item Value Reference Range Comments SODIUM (BEAKER) (test lyhm=514) 140 meq/L 136-145 POTASSIUM (BEAKER) (test qqsd=161) 4.2 meq/L 3.5-5.1 CHLORIDE (BEAKER) (test iqiv=017) 108 meq/L 98-107 CO2 (BEAKER) (test vcex=258) 23 meq/L 22-29 BLOOD UREA NITROGEN (BEAKER) (test xean=561) 12 mg/dL 7-21 CREATININE (BEAKER) (test wecj=426) 0.75 mg/dL 0.57-1.25 GLUCOSE RANDOM (BEAKER) (test bpty=384) 147 mg/dL 70-105 CALCIUM (BEAKER) (test gtpo=581) 8.4 mg/dL 8.4-10.2 EGFR (BEAKER) (test dfvr=4227) 106 mL/min/1.73 sq m ESTIMATED GFR IS NOT ACCURATE CREATININE CLEARANCE IN PREDICTING GLOMERULAR FILTRATION RATE. ESTIMATED GFR IS NOT APPLICABLE FOR DIALYSIS PATIENTS. RAD, CHEST, 1 VIEW, NON [id number] 04:41:00while patient is intubated or has chest tubes.Reason for exam:->cabgShould this be performed at the bedside?->Yes FINAL REPORT RAD, CHEST, 1 VIEW, NON DEPT INDICATION: cab g COMPARISON: Prior day's exam FINDINGS: Portable frontal view of the chest. I MPRESSION: Support Lines: The patient has been dictated. Enteric tube is been r emoved. Remaining support hardware is stable. Lungs and pleura: Hypoinflated magdalene gs without focal consolidation. Trace bilateral effusions. No pneumothorax.Heart and mediastinum: Stable contours. Stable surgical changes.Additional findings: None. Signed: JR Barbosa Robert MDReport Verified Date/Time: 09/18/2017 04:41:29 Reading Location: [address] Reading Room [facility] signed by: TABBY BARBOSA on 09/18/2017 04:41 AM CBC W/PLT COUNT & AUTO [id number] 04:37:00* Test Item Value Reference Range Comments WHITE BLOOD CELL COUNT (BEAKER) (test xazj=691) 14.7 K/ L 3.5-10.5 RED BLOOD CELL COUNT (BEAKER) (test clss=503) 3.87 M/ L 4.63-6.08 HEMOGLOBIN (BEAKER) (test jzff=722) 10.4 GM/DL 13.7-17.5 HEMATOCRIT (BEAKER) (test qrky=084) 32.9 % 40.1-51.0 MEAN CORPUSCULAR VOLUME (BEAKER) (test byuz=678) 85.0 fL 79.0-92.2 MEAN CORPUSCULAR HEMOGLOBIN (BEAKER) (test fqst=065) 26.9 pg 25.7-32.2 MEAN CORPUSCULAR HEMOGLOBIN CONC (BEAKER) (test uqdp=739) 31.6 GM/DL 32.3-36.5 RED CELL DISTRIBUTION WIDTH (BEAKER) (test zkto=842) 13.6 % 11.6-14.4 PLATELET COUNT (BEAKER) (test drdi=578) 227 K/CU MM 150-450 MEAN PLATELET VOLUME (BEAKER) (test umsh=289) 9.8 fL 9.4-12.4 NUCLEATED RED BLOOD CELLS (BEAKER) (test mpcw=695) 0 /100 WBC 0-0 NEUTROPHILS RELATIVE PERCENT (BEAKER) (test qljv=938) 81 % LYMPHOCYTES RELATIVE PERCENT (BEAKER) (test cjpe=690) 8 % MONOCYTES RELATIVE PERCENT (BEAKER) (test gwcv=333) 10 % EOSINOPHILS RELATIVE PERCENT (BEAKER) (test uhtz=952) 0 % BASOPHILS RELATIVE PERCENT (BEAKER) (test zyyk=132) 0 % NEUTROPHILS ABSOLUTE COUNT (BEAKER) (test gdys=027) 11.92 K/ L 1.78-5.38 LYMPHOCYTES ABSOLUTE COUNT (BEAKER) (test orbd=802) 1.18 K/ L 1.32-3.57 MONOCYTES ABSOLUTE COUNT (BEAKER) (test fiea=735) 1.51 K/ L 0.30-0.82 EOSINOPHILS ABSOLUTE COUNT (BEAKER) (test njdr=849) 0.01 K/ L 0.04-0.54 BASOPHILS ABSOLUTE COUNT (BEAKER) (test zadl=071) 0.05 K/ L 0.01-0.08 IMMATURE GRANULOCYTES-RELATIVE PERCENT (BEAKER) (test tncu=3061) 1 % 0-1 POCT-GLUCOSE [id number] 04:10:00* Test Item Value Reference Range Comments POC-GLUCOSE METER (BEAKER) (test zvuc=5899) 165 mg/dL 70-110 TESTED AT [address] [address] POCT-GLUCOSE [id number] 03:04:00* Test Item Value Reference Range Comments POC-GLUCOSE METER (BEAKER) (test cqrn=1290) 131 mg/dL 70-110 TESTED AT [address] [address] POCT-GLUCOSE [id number] 03:04:00* Test Item Value Reference Range Comments POC-GLUCOSE METER (BEAKER) (test xjet=0940) 125 mg/dL 70-110 TESTED AT [address] [address] CREATINE KINASE (CK), TOTAL AND [id number] 00:51:00* Test Item Value Reference Range Comments CREATINE KINASE TOTAL (BEAKER) (test fsuq=058) 1536 U/L 29-200 CREATINE KINASE-MB (BEAKER) (test ghqw=653) 85.9 ng/mL 0.0-6.6 CREATINE KINASE-MB INDEX (BEAKER) (test vdbj=327) 5.6 % CK-MB Reference Range:<6.7 Normal6.7-10.0 Borderline>10.0 AbnormalCheck Serum Magnesium level 2 hours after IV magnesium replacement.Check Serum Magnesium level 2 hours after IV magnesium replacement.[id number] 00:45:00* Test Item Value Reference Range Comments MAGNESIUM (BEAKER) (test iwwe=099) 2.6 mg/dL 1.6-2.6 Specimen slightly hemolyzed Check Serum Magnesium level 2 hours after IV magnesium replacement.CREATINE KINASE (CK)2017-09-18 00:45:00* Test Item Value Reference Range Comments CREATINE KINASE TOTAL (BEAKER) (test wdhi=050) 1536 U/L 29-200 POCT-GLUCOSE [id number] 00:24:00* Test Item Value Reference Range Comments POC-GLUCOSE METER (BEAKER) (test bqoz=7385) 133 mg/dL 70-110 TESTED AT [address] [address] POCT-GLUCOSE [id number] 22:51:00* Test Item Value Reference Range Comments POC-GLUCOSE METER (BEAKER) (test xdjq=4556) 178 mg/dL 70-110 TESTED AT [address] [address] POCT-GLUCOSE [id number] 22:12:00* Test Item Value Reference Range Comments POC-GLUCOSE METER (BEAKER) (test oxvu=0672) 179 mg/dL 70-110 TESTED AT [address] [address] [id number] 21:15:00* Test Item Value Reference Range Comments MAGNESIUM (BEAKER) (test kakc=524) 1.4 mg/dL 1.6-2.6 BASIC METABOLIC [id number] 21:15:00* Test Item Value Reference Range Comments SODIUM (BEAKER) (test ulsa=712) 138 meq/L 136-145 POTASSIUM (BEAKER) (test gxnr=984) 4.1 meq/L 3.5-5.1 CHLORIDE (BEAKER) (test hksk=037) 108 meq/L 98-107 CO2 (BEAKER) (test agbt=394) 22 meq/L 22-29 BLOOD UREA NITROGEN (BEAKER) (test ujox=495) 13 mg/dL 7-21 CREATININE (BEAKER) (test qpwv=755) 0.82 mg/dL 0.57-1.25 GLUCOSE RANDOM (BEAKER) (test fejt=890) 180 mg/dL 70-105 CALCIUM (BEAKER) (test gfap=464) 8.3 mg/dL 8.4-10.2 EGFR (BEAKER) (test otak=1948) 95 mL/min/1.73 sq m ESTIMATED GFR IS NOT ACCURATE CREATININE CLEARANCE IN PREDICTING GLOMERULAR FILTRATION RATE. ESTIMATED GFR IS NOT APPLICABLE FOR DIALYSIS PATIENTS. LACTIC ACID, ARTERIAL, WHOLE [id number] 21:14:00* Test Item Value Reference Range Comments LACTATE BLOOD ARTERIAL (2) (BEAKER) (test shdt=0713) 2.5 mmol/L 0.5-2.2 Effective 12/07/2015: Units/Reference Range ChangeNew: 0.5-2.2 mmol/L Previous: 5 -20 mg/dLBLOOD GAS, [id number] 20:56:00* Test Item Value Reference Range Comments PH ARTERIAL (BEAKER) (test zhcg=432) 7.43 7.35-7.45 PCO2 ARTERIAL (BEAKER) (test hvkh=569) 40 mmHg 35-45 PO2 ARTERIAL (BEAKER) (test xcsv=665) 89 mmHg 80-90 O2 SATURATION ARTERIAL (BEAKER) (test vtjo=286) 96.7 % 96.0-97.0 HCO3 ARTERIAL (BEAKER) (test uzyb=429) 25 mmol/L 21-29 BASE EXCESS ARTERIAL (BEAKER) (test rbdr=010) 1.0 mmol/L -2.0-3.0 PATIENT TEMPERATURE (BEAKER) (test cpne=5093) 37.8 C FIO2 (BEAKER) (test emaf=5125) 28.0 % GLUCOSE-STAT [id number] 20:56:00* Test Item Value Reference Range Comments GLUCOSE RANDOM (BEAKER) (test yfbo=823) 176 mg/dL 70-110 HGB/HCT (H&H) - STAT [id number] 20:56:00* Test Item Value Reference Range Comments HEMOGLOBIN (BEAKER) (test gfnk=274) 11.3 g/dL 13.0-16.8 HEMATOCRIT (BEAKER) (test gpwd=087) 33.0 % 40.0-50.0 CALCIUM, [id number] 20:55:00* Test Item Value Reference Range Comments CALCIUM IONIZED (BEAKER) (test zwzd=282) 1.15 mmol/L 1.12-1.27 PH, BLOOD (BEAKER) (test gxwa=5249) 7.42 SODIUM NA-STAT [id number] 20:55:00* Test Item Value Reference Range Comments SODIUM (BEAKER) (test nixi=970) 137 meq/L 135-148 POTASSIUM-STAT [id number] 20:55:00* Test Item Value Reference Range Comments POTASSIUM (BEAKER) (test zcfg=572) 3.9 meq/L 3.6-5.5 POCT-GLUCOSE [id number] 20:47:00* Test Item Value Reference Range Comments POC-GLUCOSE METER (BEAKER) (test ftrw=8237) 172 mg/dL 70-110 TESTED AT [facility] [address] [facility] [address] POCT-GLUCOSE [id number] 18:44:00* Test Item Value Reference Range Comments POC-GLUCOSE METER (BEAKER) (test mvjq=3349) 203 mg/dL 70-110 TESTED AT [place] [id number] [facility] [address] TROPONIN [id number] 18:30:00* Test Item Value Reference Range Comments TROPONIN I (BEAKER) (test qwdk=190) 14.49 ng/mL 0.00-0.03 Troponin I (TnI) levels must be interpreted in the context of the presenting sym ptoms and the clinical findings. Elevated TnI levels indicate myocardial damage, but are not specific for ischemic heart disease. Elevated TnI levels are seen in patients with other cardiac conditions (including myocarditis and congestive h eart failure), and slight TnI elevations occur in patients with other conditions , including sepsis, renal failure, acidosis, acute neurological disease, and per sistent tachyarrhythmia.CREATINE KINASE (CK), TOTAL AND [id number] 18:14:00* Test Item Value Reference Range Comments CREATINE KINASE TOTAL (BEAKER) (test afbl=160) 564 U/L 29-200 CREATINE KINASE-MB (BEAKER) (test mvqd=808) 20.8 ng/mL 0.0-6.6 CREATINE KINASE-MB INDEX (BEAKER) (test jrlh=654) 3.7 % CK-MB Reference Range:<6.7 Normal6.7-10.0 Borderline>10.0 AbnormalCBC W/PLT COUNT & AUTO [id number] 17:32:00* Test Item Value Reference Range Comments WHITE BLOOD CELL COUNT (BEAKER) (test pehe=183) 15.5 K/ L 3.5-10.5 RED BLOOD CELL COUNT (BEAKER) (test ftqs=788) 3.75 M/ L 4.63-6.08 HEMOGLOBIN (BEAKER) (test zash=570) 10.4 GM/DL 13.7-17.5 HEMATOCRIT (BEAKER) (test iapl=881) 32.4 % 40.1-51.0 MEAN CORPUSCULAR VOLUME (BEAKER) (test yhdg=755) 86.4 fL 79.0-92.2 MEAN CORPUSCULAR HEMOGLOBIN (BEAKER) (test elun=414) 27.7 pg 25.7-32.2 MEAN CORPUSCULAR HEMOGLOBIN CONC (BEAKER) (test duvp=110) 32.1 GM/DL 32.3-36.5 RED CELL DISTRIBUTION WIDTH (BEAKER) (test aozp=888) 13.4 % 11.6-14.4 PLATELET COUNT (BEAKER) (test aomf=921) 190 K/CU MM 150-450 MEAN PLATELET VOLUME (BEAKER) (test fhdp=337) 9.9 fL 9.4-12.4 NUCLEATED RED BLOOD CELLS (BEAKER) (test kmhy=085) 0 /100 WBC 0-0 NEUTROPHILS RELATIVE PERCENT (BEAKER) (test ellq=278) 82 % LYMPHOCYTES RELATIVE PERCENT (BEAKER) (test jphn=398) 8 % MONOCYTES RELATIVE PERCENT (BEAKER) (test evri=966) 8 % EOSINOPHILS RELATIVE PERCENT (BEAKER) (test mjcc=324) 1 % BASOPHILS RELATIVE PERCENT (BEAKER) (test wigk=711) 0 % NEUTROPHILS ABSOLUTE COUNT (BEAKER) (test xjoj=331) 12.70 K/ L 1.78-5.38 LYMPHOCYTES ABSOLUTE COUNT (BEAKER) (test jcch=217) 1.29 K/ L 1.32-3.57 MONOCYTES ABSOLUTE COUNT (BEAKER) (test spet=239) 1.25 K/ L 0.30-0.82 EOSINOPHILS ABSOLUTE COUNT (BEAKER) (test iool=358) 0.12 K/ L 0.04-0.54 BASOPHILS ABSOLUTE COUNT (BEAKER) (test hkre=788) 0.04 K/ L 0.01-0.08 IMMATURE GRANULOCYTES-RELATIVE PERCENT (BEAKER) (test lfss=4498) 1 % 0-1 BLOOD GAS, [id number] 17:08:00* Test Item Value Reference Range Comments PH ARTERIAL (BEAKER) (test zgkt=769) 7.39 7.35-7.45 PCO2 ARTERIAL (BEAKER) (test odmv=497) 37 mmHg 35-45 PO2 ARTERIAL (BEAKER) (test kszg=631) 94 mmHg 80-90 O2 SATURATION ARTERIAL (BEAKER) (test pahb=844) 96.9 % 96.0-97.0 HCO3 ARTERIAL (BEAKER) (test mjnx=285) 22 mmol/L 21-29 BASE EXCESS ARTERIAL (BEAKER) (test dedw=967) -2.3 mmol/L -2.0-3.0 PATIENT TEMPERATURE (BEAKER) (test jccy=2609) 37.7 C FIO2 (BEAKER) (test uhha=6163) 40.0 % GLUCOSE-STAT [id number] 17:08:00* Test Item Value Reference Range Comments GLUCOSE RANDOM (BEAKER) (test reni=750) 232 mg/dL 70-110 POCT-GLUCOSE [id number] 16:24:00* Test Item Value Reference Range Comments POC-GLUCOSE METER (BEAKER) (test cnke=2581) 213 mg/dL 70-110 TESTED AT [facility] [address] [facility] [address] BASIC METABOLIC [id number] 14:38:00* Test Item Value Reference Range Comments SODIUM (BEAKER) (test ifhx=966) 138 meq/L 136-145 POTASSIUM (BEAKER) (test xkyp=642) 4.1 meq/L 3.5-5.1 CHLORIDE (BEAKER) (test zsqa=835) 110 meq/L 98-107 CO2 (BEAKER) (test hogg=788) 19 meq/L 22-29 BLOOD UREA NITROGEN (BEAKER) (test trao=630) 13 mg/dL 7-21 CREATININE (BEAKER) (test gtvz=885) 0.74 mg/dL 0.57-1.25 GLUCOSE RANDOM (BEAKER) (test ziqq=761) 243 mg/dL 70-105 CALCIUM (BEAKER) (test kkvb=458) 8.5 mg/dL 8.4-10.2 EGFR (BEAKER) (test qhpu=7000) 107 mL/min/1.73 sq m ESTIMATED GFR IS NOT ACCURATE CREATININE CLEARANCE IN PREDICTING GLOMERULAR FILTRATION RATE. ESTIMATED GFR IS NOT APPLICABLE FOR DIALYSIS PATIENTS. [id number] 14:24:00* Test Item Value Reference Range Comments ACTIVATED CLOTTING TIME (BEAKER) (test jzko=537) 125 sec TESTED AT [facility] [address] [facility] [address] [id number] 14:24:00* Test Item Value Reference Range Comments ACTIVATED CLOTTING TIME (BEAKER) (test rrqf=529) 533 sec TESTED AT [facility] [address] [facility] [address] LACTIC ACID, ARTERIAL, WHOLE [id number] 14:23:00* Test Item Value Reference Range Comments LACTATE BLOOD ARTERIAL (2) (BEAKER) (test fetc=9190) 2.6 mmol/L 0.5-2.2 Specimen slightly hemolyzed Effective 12/07/2015: Units/Reference Range ChangeNew: 0.5-2.2 mmol/L Previous: 5 -20 mg/dLRAD, CHEST, 1 VIEW, NON [id number] 14:21:00Reason for exam:-> cabgShould this be performed at the bedside?->YesFINAL REPORT TECHNIQUE: Frontal chest radiographs dated 09/17/2017. CLINICAL HISTORY: CABG COMPARISON STUDY: Chest radiograph dated 09/15/2017 IMPRESSION:Endotracheal tube is 4.0 cm above the val. Right-sided Raymond-Juwan catheter tip projects over the region of the right pulmonary artery. Enteric tube is seen with the tip near the region of the gastric esophageal junction. L eft-sided chest tube and mediastinal drains are in place. Lung volumes are low. No pleural effusion or pneumothorax. Cardiomediastinal silhouette is normal in s ize. No pulmonary edema. Midline sternotomy wires are intact and well aligned. N o fracture. Signed: Radha Martinezeport Verified Date/Time: 09/17/2017 14:21:49 Reading Location: [facility] Radiology Reading Room EN SATURATION, MEASURED 2017-09-17 14:08:00* Test Item Value Reference Range Comments O2 SATURATION (MEASURED) (BEAKER) (test shlw=0144) 76.7 % From distal port of IJ central venous catheterCALCIUM, [id number] 14:06:00* Test Item Value Reference Range Comments CALCIUM IONIZED (BEAKER) (test fawy=020) 1.20 mmol/L 1.12-1.27 PH, BLOOD (BEAKER) (test llgc=9936) 7.34 BLOOD GAS, [id number] 14:06:00* Test Item Value Reference Range Comments PH ARTERIAL (BEAKER) (test mikd=244) 7.37 7.35-7.45 PCO2 ARTERIAL (BEAKER) (test kfll=109) 37 mmHg 35-45 PO2 ARTERIAL (BEAKER) (test iqov=774) 111 mmHg 80-90 O2 SATURATION ARTERIAL (BEAKER) (test uuda=550) 98.3 % 96.0-97.0 HCO3 ARTERIAL (BEAKER) (test mago=718) 22 mmol/L 21-29 BASE EXCESS ARTERIAL (BEAKER) (test dcjw=178) -3.9 mmol/L -2.0-3.0 PATIENT TEMPERATURE (BEAKER) (test ohsc=9735) 34.8 C FIO2 (BEAKER) (test jotw=4318) 60.0 % GLUCOSE-STAT [id number] 14:06:00* Test Item Value Reference Range Comments GLUCOSE RANDOM (BEAKER) (test zqhy=248) 237 mg/dL 70-110 HEMOGLOBIN-STAT [id number] 14:06:00* Test Item Value Reference Range Comments HEMOGLOBIN (BEAKER) (test xvig=148) 11.0 g/dL 13.0-16.8 HGB/HCT (H&H) - STAT [id number] 14:06:00* Test Item Value Reference Range Comments HEMOGLOBIN (BEAKER) (test iahl=346) 11.0 GM/DL 13.0-16.8 HEMATOCRIT (BEAKER) (test kfay=090) 32.0 % 40.0-50.0 SODIUM NA-STAT [id number] 14:05:00* Test Item Value Reference Range Comments SODIUM (BEAKER) (test rcft=825) 137 meq/L 135-148 POTASSIUM-STAT [id number] 14:05:00* Test Item Value Reference Range Comments POTASSIUM (BEAKER) (test jusd=252) 4.0 meq/L 3.6-5.5 THROMBOELASTOGRAPH (TEG)2017-09-17 13:33:00* Test Item Value Reference Range Comments TEG ACTIVATED CLOTTING TIME (BEAKER) (test qove=8329) 5.3 minutes 4.0-7.0 TEG FIBRINOGEN ACTIVITY (BEAKER) (test ubpj=2137) 71.8 degrees 61.0-73.0 TEG PLT. AGGREGATION (BEAKER) (test ewvq=4807) 66.3 MM 55.0-65.0 TGH ACTIVATED CLOTTING TIME (BEAKER) (test xbnt=0362) 5.6 minutes 4.0-7.0 TGH FIBRINOGEN ACTIVITY (BEAKER) (test xtmy=8810) 72.0 degrees 61.0-73.0 TGH PLT. AGGREGATION (BEAKER) (test cysa=6704) 59.0 MM 55.0-65.0 PLATELET [id number] 13:20:00* Test Item Value Reference Range Comments PLATELET COUNT (BEAKER) (test hzlq=926) 237 K/CU MM 150-450 Discordant result compared to previous result; clinical correlation required. [id number] 13:01:00* Test Item Value Reference Range Comments FIBRINOGEN LEVEL (BEAKER) (test adgg=100) 328 mg/dl 225-434 PROTHROMBIN TIME/[id number] 12:56:00* Test Item Value Reference Range Comments PROTIME (BEAKER) (test uzwy=585) 21.1 seconds 11.7-14.7 INR (BEAKER) (test ovpj=598) 1.8 <=5.9 RECOMMENDED COUMADIN/WARFARIN INR THERAPY RANGESSTANDARD DOSE: 2.0 - 3.0 Inclu zeb: PROPHYLAXIS for venous thrombosis, systemic embolization; TREATMENT for lei ous thrombosis and/or pulmonary embolus.HIGH RISK: Target INR is 2.5-3.5 for pat ients with mechanical heart valves.[id number] 12:56:00* Test Item Value Reference Range Comments PARTIAL THROMBOPLASTIN TIME (BEAKER) (test csdc=831) 35.2 seconds 22.5-36.0 SODIUM NA-STAT [id number] 12:37:00* Test Item Value Reference Range Comments SODIUM (BEAKER) (test tlcm=610) 136 meq/L 135-148 POTASSIUM-STAT [id number] 12:37:00* Test Item Value Reference Range Comments POTASSIUM (BEAKER) (test aane=130) 3.9 meq/L 3.6-5.5 CALCIUM, [id number] 12:37:00* Test Item Value Reference Range Comments CALCIUM IONIZED (BEAKER) (test owha=853) 1.11 mmol/L 1.12-1.27 PH, BLOOD (BEAKER) (test yzeh=0362) 7.35 BLOOD GAS, [id number] 12:37:00* Test Item Value Reference Range Comments PH ARTERIAL (BEAKER) (test hmfj=859) 7.38 7.35-7.45 PCO2 ARTERIAL (BEAKER) (test gbeu=380) 31 mmHg 35-45 PO2 ARTERIAL (BEAKER) (test botb=122) 240 mmHg 80-90 O2 SATURATION ARTERIAL (BEAKER) (test botw=036) 99.5 % 96.0-97.0 HCO3 ARTERIAL (BEAKER) (test kciv=033) 18 mmol/L 21-29 BASE EXCESS ARTERIAL (BEAKER) (test irtb=183) -6.6 mmol/L -2.0-3.0 PATIENT TEMPERATURE (BEAKER) (test oasw=8528) 34.4 C FIO2 (BEAKER) (test fazr=7592) 100.0 % GLUCOSE-STAT [id number] 12:37:00* Test Item Value Reference Range Comments GLUCOSE RANDOM (BEAKER) (test vfhl=189) 247 mg/dL 70-110 HGB/HCT (H&H) - STAT [id number] 12:37:00* Test Item Value Reference Range Comments HEMOGLOBIN (BEAKER) (test nkfk=441) 9.6 g/dL 13.0-16.8 HEMATOCRIT (BEAKER) (test qplr=027) 28.0 % 40.0-50.0 BLOOD GAS, [id number] 11:27:00* Test Item Value Reference Range Comments PH ARTERIAL (BEAKER) (test ezdo=803) 7.37 7.35-7.45 PCO2 ARTERIAL (BEAKER) (test acpr=073) 37 mmHg 35-45 PO2 ARTERIAL (BEAKER) (test erqo=872) 290 mmHg 80-90 O2 SATURATION ARTERIAL (BEAKER) (test khaj=865) 99.7 % 96.0-97.0 HCO3 ARTERIAL (BEAKER) (test pzxy=324) 21 mmol/L 21-29 BASE EXCESS ARTERIAL (BEAKER) (test xmbj=713) -4.1 mmol/L -2.0-3.0 PATIENT TEMPERATURE (BEAKER) (test utgr=0934) 34.8 C FIO2 (BEAKER) (test wkru=4168) 100.0 % GLUCOSE-STAT [id number] 11:27:00* Test Item Value Reference Range Comments GLUCOSE RANDOM (BEAKER) (test zbmt=151) 191 mg/dL 70-110 HGB/HCT (H&H) - STAT [id number] 11:27:00* Test Item Value Reference Range Comments HEMOGLOBIN (BEAKER) (test pfpb=192) 10.8 g/dL 13.0-16.8 HEMATOCRIT (BEAKER) (test diit=786) 32.0 % 40.0-50.0 CALCIUM, [id number] 11:27:00* Test Item Value Reference Range Comments CALCIUM IONIZED (BEAKER) (test jocd=591) 1.26 mmol/L 1.12-1.27 PH, BLOOD (BEAKER) (test azet=4472) 7.34 SODIUM NA-STAT [id number] 11:25:00* Test Item Value Reference Range Comments SODIUM (BEAKER) (test tnci=685) 137 meq/L 135-148 POTASSIUM-STAT [id number] 11:25:00* Test Item Value Reference Range Comments POTASSIUM (BEAKER) (test dwle=256) 3.8 meq/L 3.6-5.5 BLOOD GAS, [id number] 10:12:00* Test Item Value Reference Range Comments PH ARTERIAL (BEAKER) (test oqcu=186) 7.40 7.35-7.45 PCO2 ARTERIAL (BEAKER) (test nejz=103) 36 mmHg 35-45 PO2 ARTERIAL (BEAKER) (test evkv=073) 310 mmHg 80-90 O2 SATURATION ARTERIAL (BEAKER) (test aqvs=812) 99.7 % 96.0-97.0 HCO3 ARTERIAL (BEAKER) (test jgqf=994) 22 mmol/L 21-29 BASE EXCESS ARTERIAL (BEAKER) (test uzho=482) -2.6 mmol/L -2.0-3.0 PATIENT TEMPERATURE (BEAKER) (test drbd=9140) 35.2 C FIO2 (BEAKER) (test ysam=5146) 100.0 % GLUCOSE-STAT [id number] 10:12:00* Test Item Value Reference Range Comments GLUCOSE RANDOM (BEAKER) (test muma=520) 213 mg/dL 70-110 HGB/HCT (H&H) - STAT [id number] 10:12:00* Test Item Value Reference Range Comments HEMOGLOBIN (BEAKER) (test ciss=673) 12.0 g/dL 13.0-16.8 HEMATOCRIT (BEAKER) (test jamn=106) 35.0 % 40.0-50.0 CALCIUM, [id number] 10:12:00* Test Item Value Reference Range Comments CALCIUM IONIZED (BEAKER) (test hqnr=266) 1.01 mmol/L 1.12-1.27 PH, BLOOD (BEAKER) (test yszi=6877) 7.37 SODIUM NA-STAT [id number] 10:09:00* Test Item Value Reference Range Comments SODIUM (BEAKER) (test vfjc=690) 136 meq/L 135-148 POTASSIUM-STAT [id number] 10:09:00* Test Item Value Reference Range Comments POTASSIUM (BEAKER) (test bdau=888) 4.2 meq/L 3.6-5.5 BLOOD GAS, [id number] 08:56:00* Test Item Value Reference Range Comments PH ARTERIAL (BEAKER) (test shrs=977) 7.43 7.35-7.45 PCO2 ARTERIAL (BEAKER) (test yytt=756) 38 mmHg 35-45 PO2 ARTERIAL (BEAKER) (test kkws=040) 407 mmHg 80-90 O2 SATURATION ARTERIAL (BEAKER) (test pgzs=092) 99.8 % 96.0-97.0 HCO3 ARTERIAL (BEAKER) (test kkio=151) 25 mmol/L 21-29 BASE EXCESS ARTERIAL (BEAKER) (test epcz=781) 0.0 mmol/L -2.0-3.0 PATIENT TEMPERATURE (BEAKER) (test abne=8504) 36.1 C FIO2 (BEAKER) (test cdmw=5344) 98.0 % GLUCOSE-STAT [id number] 08:56:00* Test Item Value Reference Range Comments GLUCOSE RANDOM (BEAKER) (test lken=586) 218 mg/dL 70-110 HGB/HCT (H&H) - STAT [id number] 08:56:00* Test Item Value Reference Range Comments HEMOGLOBIN (BEAKER) (test pizt=346) 12.9 g/dL 13.0-16.8 HEMATOCRIT (BEAKER) (test tlff=155) 38.0 % 40.0-50.0 CALCIUM, [id number] 08:56:00* Test Item Value Reference Range Comments CALCIUM IONIZED (BEAKER) (test rzwf=847) 1.10 mmol/L 1.12-1.27 PH, BLOOD (BEAKER) (test cgzl=2306) 7.41 SODIUM NA-STAT [id number] 08:54:00* Test Item Value Reference Range Comments SODIUM (BEAKER) (test juwa=553) 135 meq/L 135-148 POTASSIUM-STAT [id number] 08:54:00* Test Item Value Reference Range Comments POTASSIUM (BEAKER) (test amim=891) 3.7 meq/L 3.6-5.5 POCT-GLUCOSE [id number] 05:54:00* Test Item Value Reference Range Comments POC-GLUCOSE METER (BEAKER) (test gtry=2308) 224 mg/dL 70-110 TESTED AT [facility] [address] [facility] [address] BASIC METABOLIC [id number] 05:46:00* Test Item Value Reference Range Comments SODIUM (BEAKER) (test vvyt=371) 135 meq/L 136-145 POTASSIUM (BEAKER) (test cyeg=356) 3.9 meq/L 3.5-5.1 CHLORIDE (BEAKER) (test bkzn=999) 102 meq/L 98-107 CO2 (BEAKER) (test agqi=762) 21 meq/L 22-29 BLOOD UREA NITROGEN (BEAKER) (test unlx=933) 16 mg/dL 7-21 CREATININE (BEAKER) (test xdoy=581) 0.86 mg/dL 0.57-1.25 GLUCOSE RANDOM (BEAKER) (test gvyc=672) 199 mg/dL 70-105 CALCIUM (BEAKER) (test qkur=133) 8.8 mg/dL 8.4-10.2 EGFR (BEAKER) (test alwi=6595) 90 mL/min/1.73 sq m ESTIMATED GFR IS NOT ACCURATE CREATININE CLEARANCE IN PREDICTING GLOMERULAR FILTRATION RATE. ESTIMATED GFR IS NOT APPLICABLE FOR DIALYSIS PATIENTS. CBC W/PLT COUNT & AUTO [id number] 05:03:00* Test Item Value Reference Range Comments WHITE BLOOD CELL COUNT (BEAKER) (test uvlh=328) 10.0 K/ L 3.5-10.5 RED BLOOD CELL COUNT (BEAKER) (test tftm=344) 4.73 M/ L 4.63-6.08 HEMOGLOBIN (BEAKER) (test chcd=763) 12.7 GM/DL 13.7-17.5 HEMATOCRIT (BEAKER) (test nfsk=065) 40.0 % 40.1-51.0 MEAN CORPUSCULAR VOLUME (BEAKER) (test qaaq=024) 84.6 fL 79.0-92.2 MEAN CORPUSCULAR HEMOGLOBIN (BEAKER) (test dmsa=076) 26.8 pg 25.7-32.2 MEAN CORPUSCULAR HEMOGLOBIN CONC (BEAKER) (test lolq=049) 31.8 GM/DL 32.3-36.5 RED CELL DISTRIBUTION WIDTH (BEAKER) (test rxpo=182) 13.4 % 11.6-14.4 PLATELET COUNT (BEAKER) (test lhfu=703) 310 K/CU MM 150-450 MEAN PLATELET VOLUME (BEAKER) (test lvec=188) 10.0 fL 9.4-12.4 NUCLEATED RED BLOOD CELLS (BEAKER) (test pjsu=885) 0 /100 WBC 0-0 NEUTROPHILS RELATIVE PERCENT (BEAKER) (test wqal=569) 60 % LYMPHOCYTES RELATIVE PERCENT (BEAKER) (test klpe=764) 25 % MONOCYTES RELATIVE PERCENT (BEAKER) (test tzml=092) 11 % EOSINOPHILS RELATIVE PERCENT (BEAKER) (test mjdu=434) 3 % BASOPHILS RELATIVE PERCENT (BEAKER) (test llue=005) 1 % NEUTROPHILS ABSOLUTE COUNT (BEAKER) (test eedf=313) 5.97 K/ L 1.78-5.38 LYMPHOCYTES ABSOLUTE COUNT (BEAKER) (test doxb=868) 2.49 K/ L 1.32-3.57 MONOCYTES ABSOLUTE COUNT (BEAKER) (test jzrm=195) 1.10 K/ L 0.30-0.82 EOSINOPHILS ABSOLUTE COUNT (BEAKER) (test ykzs=747) 0.32 K/ L 0.04-0.54 BASOPHILS ABSOLUTE COUNT (BEAKER) (test jgqg=711) 0.07 K/ L 0.01-0.08 IMMATURE GRANULOCYTES-RELATIVE PERCENT (BEAKER) (test xzgi=4984) 0 % 0-1 POCT-GLUCOSE [id number] 20:59:00* Test Item Value Reference Range Comments POC-GLUCOSE METER (BEAKER) (test rues=7673) 199 mg/dL 70-110 TESTED AT [facility] [address] [address] MUGA, CARD IMAGING, EQ, REST, WM, [id number] 17:00:00FINAL REPORT PROCEDURE: Resting RADIONUCLIDE VENTRICULOGRAM (MUGA scan) CPT CODE: 97689 INDICATION: Chest pain, high probability of coronary [...] labeled red blood cells. Equilibrium gated planar car diac images were obtained in multiple views at rest. IMAGING FINDINGS: St udy quality is good. LV volume appears normal. RV volume appears normal. Gated i mages obtained at rest show mild hypokinesis of the anteroseptal and inferior wa lls of the LV. LVEF is 46%. IMPRESSION: 1. Abnormal resting radionuclide ventriculogram. There is mild hypokinesis of anteroseptal and inferior real of the LV. LVEF is 46%. 2. No previous [facility] study for comparison. Signed: Misael Parker MDReport Verified Date/Time: 09/16/2017 17:00:18 Reading Location: [address] [facility] Reading Room -GLUCOSE [id number] 16:59:00* Test Item Value Reference Range Comments POC-GLUCOSE METER (BEAKER) (test rgyz=3803) 174 mg/dL 70-110 TESTED AT [facility] [address] [address] PLATELET AGGREGATION: FUNCTION [id number] 14:00:00* Test Item Value Reference Range Comments WEAK ADP RESULT(BEAKER) (test wsfv=7486) 63 % 60-91 PLATELET FUNCTION SCREEN INTERP (BEAKER) (test dqcl=4963) 60-100% indicates normal platelet function [id number] (BEAKER) (test vmnc=2728) Zeinab Parikh MD (electronic signature) PLATELET COUNT AGG (BEAKER) (test zkpi=4358) 317 K/CU MM 150-450 for patients on clopidogrel in past two weeksPOCT-GLUCOSE [id number] 12:14:00* Test Item Value Reference Range Comments POC-GLUCOSE METER (BEAKER) (test rqyh=8389) 232 mg/dL 70-110 TESTED AT [facility] [address] [address] URINALYSIS W/ [id number] 08:54:00* Test Item Value Reference Range Comments COLOR (BEAKER) (test uqqe=798) Yellow CLARITY (BEAKER) (test bipw=689) Clear SPECIFIC GRAVITY UA (BEAKER) (test beua=599) 1.024 1.001-1.035 PH UA (BEAKER) (test jxnm=915) 5.5 5.0-8.0 PROTEIN UA (BEAKER) (test uttv=255) Negative Negative GLUCOSE UA (BEAKER) (test ahon=223) Negative Negative KETONES UA (BEAKER) (test trhu=302) Negative Negative BILIRUBIN UA (BEAKER) (test ufpp=823) Negative Negative BLOOD UA (BEAKER) (test ktyv=470) Negative Negative NITRITE UA (BEAKER) (test yfsm=097) Negative Negative LEUKOCYTE ESTERASE UA (BEAKER) (test ubtt=053) Negative Negative UROBILINOGEN UA (BEAKER) (test rqyo=368) 3.0 mg/dL 0.2-1.0 RBC UA (BEAKER) (test khsg=986) < /HPF WBC UA (BEAKER) (test xagr=809) 0 /HPF MUCUS (BEAKER) (test iqbd=3453) Many HYALINE CASTS (BEAKER) (test bwuu=941) 2 /LPF SOURCE(BEAKER) (test ngpa=1278) Urine, Clean Catch HEMOGLOBIN [id number] 07:53:00* Test Item Value Reference Range Comments HEMOGLOBIN A1C (BEAKER) (test osty=098) 8.1 % 4.3-6.1 POCT-GLUCOSE [id number] 07:49:00* Test Item Value Reference Range Comments POC-GLUCOSE METER (BEAKER) (test abvd=0488) 168 mg/dL 70-110 TESTED AT [address] [address] [id number] 05:47:00* Test Item Value Reference Range Comments COL/EPI CLOSURE TIME (BEAKER) (test mdqf=8533) > Seconds 78-191 COL/ADP CLOSURE TIME (BEAKER) (test auwo=7028) 83 Seconds 43-122 PLATELET COUNT AGG (BEAKER) (test bcfq=9601) 317 K/CU MM 150-450 for patients on aspirin in past 2 weeksCOMPREHENSIVE METABOLIC [id number] 05:20:00* Test Item Value Reference Range Comments TOTAL PROTEIN (BEAKER) (test tzpa=329) 7.3 gm/dL 6.0-8.3 ALBUMIN (BEAKER) (test lfmd=6197) 3.7 g/dL 3.5-5.0 ALKALINE PHOSPHATASE (BEAKER) (test amgo=397) 73 U/L 40-150 BILIRUBIN TOTAL (BEAKER) (test nzlu=140) 0.5 mg/dL 0.2-1.2 SODIUM (BEAKER) (test ajbl=984) 137 meq/L 136-145 POTASSIUM (BEAKER) (test byvc=461) 3.9 meq/L 3.5-5.1 CHLORIDE (BEAKER) (test wenr=301) 104 meq/L 98-107 CO2 (BEAKER) (test sdpt=622) 23 meq/L 22-29 BLOOD UREA NITROGEN (BEAKER) (test hool=677) 17 mg/dL 7-21 CREATININE (BEAKER) (test pkpr=426) 0.81 mg/dL 0.57-1.25 GLUCOSE RANDOM (BEAKER) (test pazt=645) 161 mg/dL 70-105 CALCIUM (BEAKER) (test aamb=735) 9.2 mg/dL 8.4-10.2 AST (SGOT) (BEAKER) (test vbti=500) 25 U/L 5-34 ALT (SGPT) (BEAKER) (test gnmg=931) 29 U/L 6-55 EGFR (BEAKER) (test frnh=5824) 97 mL/min/1.73 sq m ESTIMATED GFR IS NOT ACCURATE CREATININE CLEARANCE IN PREDICTING GLOMERULAR FILTRATION RATE. ESTIMATED GFR IS NOT APPLICABLE FOR DIALYSIS PATIENTS. [id number] 04:57:00* Test Item Value Reference Range Comments PARTIAL THROMBOPLASTIN TIME (BEAKER) (test coaw=146) 42.9 seconds 22.5-36.0 PROTHROMBIN TIME/[id number] 04:55:00* Test Item Value Reference Range Comments PROTIME (BEAKER) (test igux=090) 15.6 seconds 11.7-14.7 INR (BEAKER) (test egxx=744) 1.2 <=5.9 RECOMMENDED COUMADIN/WARFARIN INR THERAPY RANGESSTANDARD DOSE: 2.0 - 3.0 Inclu zeb: PROPHYLAXIS for venous thrombosis, systemic embolization; TREATMENT for lei ous thrombosis and/or pulmonary embolus.HIGH RISK: Target INR is 2.5-3.5 for pat ients with mechanical heart valves.CBC W/PLT COUNT & AUTO [id number] 04:47:00* Test Item Value Reference Range Comments WHITE BLOOD CELL COUNT (BEAKER) (test hixy=211) 10.0 K/ L 3.5-10.5 RED BLOOD CELL COUNT (BEAKER) (test phgv=142) 4.89 M/ L 4.63-6.08 HEMOGLOBIN (BEAKER) (test aabl=457) 13.2 GM/DL 13.7-17.5 HEMATOCRIT (BEAKER) (test xcys=529) 40.6 % 40.1-51.0 MEAN CORPUSCULAR VOLUME (BEAKER) (test rpdv=820) 83.0 fL 79.0-92.2 MEAN CORPUSCULAR HEMOGLOBIN (BEAKER) (test hufj=090) 27.0 pg 25.7-32.2 MEAN CORPUSCULAR HEMOGLOBIN CONC (BEAKER) (test buvw=173) 32.5 GM/DL 32.3-36.5 RED CELL DISTRIBUTION WIDTH (BEAKER) (test jxfr=129) 13.3 % 11.6-14.4 PLATELET COUNT (BEAKER) (test bxae=544) 303 K/CU MM 150-450 MEAN PLATELET VOLUME (BEAKER) (test gtfc=436) 9.5 fL 9.4-12.4 NUCLEATED RED BLOOD CELLS (BEAKER) (test enqb=083) 0 /100 WBC 0-0 NEUTROPHILS RELATIVE PERCENT (BEAKER) (test jkrm=416) 56 % LYMPHOCYTES RELATIVE PERCENT (BEAKER) (test awov=206) 27 % MONOCYTES RELATIVE PERCENT (BEAKER) (test vqbf=158) 12 % EOSINOPHILS RELATIVE PERCENT (BEAKER) (test vzyt=501) 4 % BASOPHILS RELATIVE PERCENT (BEAKER) (test olmr=009) 1 % NEUTROPHILS ABSOLUTE COUNT (BEAKER) (test wlvf=039) 5.54 K/ L 1.78-5.38 LYMPHOCYTES ABSOLUTE COUNT (BEAKER) (test drtk=514) 2.70 K/ L 1.32-3.57 MONOCYTES ABSOLUTE COUNT (BEAKER) (test rjvc=008) 1.24 K/ L 0.30-0.82 EOSINOPHILS ABSOLUTE COUNT (BEAKER) (test qctw=487) 0.39 K/ L 0.04-0.54 BASOPHILS ABSOLUTE COUNT (BEAKER) (test zvxb=725) 0.08 K/ L 0.01-0.08 IMMATURE GRANULOCYTES-RELATIVE PERCENT (BEAKER) (test iwas=9045) 0 % 0-1 POCT-GLUCOSE [id number] 21:56:00* Test Item Value Reference Range Comments POC-GLUCOSE METER (YOLANDE) (test mfwd=1176) 223 mg/dL 70-110 TESTED AT [facility] [address] [address] RAD, CHEST, 2 [id number] 21:33:00Reason for exam:->PreopFINAL REPORT INDICATION: Preop COMPARISON: None TECHNIQUE: Frontal and lateral views of the chest. FINDINGS: Lungs and pleura: Acute bilateral opacities. No effusion.Heart and mediastinum: Normal heart size. Unremarkable mediastinal contours.Osseous structures: No acute abnormality.Additional fin dings: None. IMPRESSION: Patchy bilateral airspace disease is nonspecific and m ay reflect underinflation or atypical multifocal pneumonia in the appropriate cl inical context. Signed: JR Barbosa Robert MDReport Verified Date/Time: 0 09/15/2017 21:33:48 Reading Location: [address] Reading Room [place] ctronically signed by: TABBY BARBOSA on 09/15/2017 09:33 PM
[2018-09-07] MEDS ORDERED: ASPIRIN 81 MG CHEW TAB PO ONE (13:15)
--- NOTE | 2018-09-07 13:38 | NUR ---
RCD PT [facility] PT IS ALERT AND ORIENTED VITALS CHECKED PT RESTING ON BED NO SIGNS OF ANY DISTRESS NOTED IV PATENT ADMISSION ASSESSMENT AND HISTORY DONE NO FEVER ,NO CHEST PAIN FAMILY AT BED SIDE INSTRUCTE PT AND FAMILY REGARDING HOSPITAL POLICY AND ROUTINE BED LOW AND LOCKED CALL LIGHT IN REACH
[2018-09-07] MEDS ORDERED: LASIX20 MG PO (13:50)
[2018-09-07] MEDS ORDERED: POTASSIUM CHLO10 ME1 PO (13:50)
[2018-09-07] MEDS ORDERED: CLOPIDOGREL75 MG PO (13:50)
[2018-09-07] MEDS ORDERED: GLIPIZIDE5 MG PO (13:50)
[2018-09-07] MEDS ORDERED: ATORVASTATIN CA10 MG PO (13:50)
[2018-09-07] MEDS ORDERED: LOW DOSE ASPIRI81 MG PO (13:50)
[2018-09-07] MEDS ORDERED: DOXAZOSIN MESYLA2 MG PO (13:50)
[2018-09-07] MEDS ORDERED: LISINOPRIL2.5 MG PO (13:50)
[2018-09-07] MEDS ORDERED: METHYLPREDNISOLONE SOD SUCC 40 MG/ML VIAL 1ML IV SCH (14:00)
[2018-09-07] MEDS: AZITHROMYCIN 500MG/NS 250 ML 250 ML IV SCH (14:00)
[2018-09-07 14:18] VITALS: BP 106/59
[2018-09-07] MEDS ORDERED: SODIUM CHLORIDE FLUSH 10 ML SYR IV ONE (14:30)
[2018-09-07 14:58] LABS: CREATINE KINASE MB 0.7 ng/mL (0-5.0)
[2018-09-07] MEDS: ALBUTEROL/IPRATROPIUM 3 ML NEB NEB SCH ×3 (15:00→23:38)
--- NOTE | 2018-09-07 15:15 | NUR ---
ALSO GOT THE ORDER TO RENEW HOME MEDICATIONS
--- NOTE | 2018-09-07 15:15 | NUR ---
PAGED AND NOTIFIED TROPHONIN LEVEL TO DR DOWNING GOT NEW ORDERS
[2018-09-07 15:33] VITALS: BP 106/59
[2018-09-07 15:41] VITALS: BP 106/59
--- NOTE | 2018-09-07 16:30 | NUR ---
PAGED AND NOTIFIED DR ACKERMAN PT IS HERE GOT THE ORDER TO RENEW HOME MEDS AND LOW DOSE SLIDING SCALE REGULAR INSULIN
[2018-09-07 16:57] LABS: ALANINE AMINOTRANSFERASE 20 IU/L (0-55); ALBUMIN 3.1 g/dL (3.5-5.0); ALBUMIN/GLOBULIN RATIO 0.8 (0.8-2.0); ALKALINE PHOSPHATASE 66 IU/L (40-150); ANION GAP 19.2 mmol/L (8-16); BLOOD UREA NITROGEN 13 mg/dL (7-26); BUN/CREATININE RATIO 14 (6-25); CALCIUM 8.4 mg/dL (8.4-10.2); CARBON DIOXIDE 17 mmol/L (22-29); CHLORIDE 101 mmol/L (98-107); CREATININE, SERUM 0.92 mg/dL (0.72-1.25); EST GLOMERULAR FILTRATION RATE > 60 ML/MIN (60-); GLUCOSE 231 mg/dL (74-118); POTASSIUM 4.2 mmol/L (3.5-5.1); SODIUM 133 mmol/L (136-145)
[2018-09-07] MEDS: OSELTAMIVIR PHOSPHATE 75 MG CAP PO SCH (17:00)
[2018-09-07] MEDS: METHYLPREDNISOLONE SOD SUCC 40 MG/ML VIAL 1ML IV SCH (17:00)
[2018-09-07] MEDS: INSULIN REGULAR, HUMAN 100 UNIT/1 ML 3ML VIAL SQ SCH ×2 (17:30→20:55)
[2018-09-07] MEDS ORDERED: DEXTROSE 50% SYRINGE 50 ML IV PRN (17:45)
--- NOTE | 2018-09-07 18:41 | NUR ---
PT RESTING ON BED BED SIDE REPORT GIVEN TO ONCOMING NURSE
[2018-09-07 19:33] LABS: CREATINE KINASE MB 0.9 ng/mL (0-5.0)
--- NOTE | 2018-09-07 19:35 | NUR ---
patient received. Patient is resting in bed. Resp even and unlabored. No acute distress noted. Patient denies of any pain or discomfort. tele in place. family at bed time. call light within reach. instruct to call for assistance. bed low/locked. continue to monitor closely
[2018-09-07] MEDS ORDERED: DOXAZOSIN MESYLATE 2 MG TAB PO SCH (21:00)
[2018-09-07] MEDS ORDERED: ATORVASTATIN 10 MG TAB PO SCH (21:00)
[2018-09-07 21:09] VITALS: BP 114/62
[2018-09-08] VITALS (9 sets, daily range): BP systolic 108–130; BP diastolic 52–73
[2018-09-08] MEDS: METHYLPREDNISOLONE SOD SUCC 40 MG/ML VIAL 1ML IV SCH ×3 (00:06→16:38)
[2018-09-08 03:06] LABS: CREATINE KINASE MB 1.3 ng/mL (0-5.0)
[2018-09-08 03:14] LABS: BASOPHILS % 0.1 % (0.0-1.0); HEMATOCRIT 34.9 % (38.2-49.6); HEMOGLOBIN 12.3 g/dL (14.0-18.0); LYMPHOCYTES # (AUTO) 0.7 (1.0-3.2); LYMPHOCYTES % 4.7 % (18.0-39.1); MEAN CORPUSCULAR HEMOGLOBIN 27.9 pg (28-32); MEAN CORPUSCULAR HGB CONC 35.2 g/dL (31-35); MEAN CORPUSCULAR VOLUME 79.1 fL (81-99); MONOCYTES # (AUTO) 0.9 (0.2-0.8); MONOCYTES % 5.8 % (4.4-11.3); NEUTROPHILS # (AUTO) 13.8 (2.1-6.9); NEUTROPHILS % 88.9 % (38.7-80.0); PLATELET COUNT 176 x10e3/uL (140-360); RED BLOOD COUNT 4.41 x10e6/uL (4.3-5.7)
[2018-09-08 03:27] LABS: ALANINE AMINOTRANSFERASE 19 IU/L (0-55); ALBUMIN 2.9 g/dL (3.5-5.0); ALBUMIN/GLOBULIN RATIO 0.8 (0.8-2.0); ALKALINE PHOSPHATASE 74 IU/L (40-150); ANION GAP 17.5 mmol/L (8-16); BLOOD UREA NITROGEN 18 mg/dL (7-26); BUN/CREATININE RATIO 20 (6-25); CALCIUM 8.7 mg/dL (8.4-10.2); CARBON DIOXIDE 16 mmol/L (22-29); CHLORIDE 104 mmol/L (98-107); CHOL/HDL RATIO 3.6 (3.9-4.7); CHOLESTEROL 86 MD/DL (0-199); EST GLOMERULAR FILTRATION RATE > 60 ML/MIN (60-); GLUCOSE 280 mg/dL (74-118); HDL CHOLESTEROL 24 MG/DL (40-60); LDL CHOLESTEROL 49 MG/DL (60-130); POTASSIUM 3.5 mmol/L (3.5-5.1); SODIUM 134 mmol/L (136-145); TRIGLYCERIDES 65 MG/DL (0-149)
[2018-09-08] MEDS: ALBUTEROL/IPRATROPIUM 3 ML NEB NEB SCH ×6 (03:27→23:55)
[2018-09-08 03:47] LABS: THYROID STIMULATING HORMONE 0.587 uIU/mL (0.350-4.940)
--- NOTE | 2018-09-08 07:05 | NUR ---
RCD PT AT BED PT IS ALERT AND ORIENTED ASSESSMENT DONE PT RESTING ON BED NO SIGNS OF ANY DISTRESS NOTED IV PATENT BED LOW AND LOCKED CALL LIGHT IN REACH
[2018-09-08] MEDS: INSULIN REGULAR, HUMAN 100 UNIT/1 ML 3ML VIAL SQ SCH ×4 (07:30→21:00)
[2018-09-08] MEDS ORDERED: CLOPIDOGREL BISULFATE 75 MG TAB PO ONE (08:00)
--- NOTE | 2018-09-08 08:57 | Diagnostic Imaging Report ---
EXAMINATION: CHEST 2 VIEWS INDICATION: Asthma. COMPARISON: None FINDINGS: TUBES and LINES: None. LUNGS: Moderate lung volumes. Patchy opacity in the medial right lung base. No evidence of pulmonary edema. PLEURA: No pleural effusion or pneumothorax. HEART AND MEDIASTINUM: The cardiomediastinal silhouette is unremarkable. Clips project over the left mediastinum. BONES AND SOFT TISSUES: No acute osseous abnormality. Status post median sternotomy. UPPER ABDOMEN: No free air under the diaphragm. IMPRESSION: Patchy opacities in the medial right lung base could represent atelectasis or early pneumonia in the appropriate clinical setting. Follow up chest radiograph is suggested in 6-8 weeks to assess for resolution. Signed by: Dr. Ray Solis MD on 09/08/2018 8:54 AM
[2018-09-08] MEDS: FUROSEMIDE 20 MG TAB PO SCH (09:00)
[2018-09-08] MEDS: GLIPIZIDE 5 MG TAB PO SCH (09:00)
[2018-09-08] MEDS: LISINOPRIL 2.5 MG TAB PO SCH (09:00)
[2018-09-08] MEDS: CLOPIDOGREL BISULFATE 75 MG TAB PO SCH (09:00)
[2018-09-08] MEDS: OSELTAMIVIR PHOSPHATE 75 MG CAP PO SCH ×2 (09:00→16:39)
[2018-09-08] MEDS: METOPROLOL TARTRATE 25 MG TAB PO SCH ×2 (09:00→16:39)
[2018-09-08] MEDS: POTASSIUM CHLORIDE 10MEQ EA PO SCH (09:00)
--- NOTE | 2018-09-08 10:13 | Consultation ---
DATE OF CONSULTATION: CHIEF COMPLAINT: Fevers, chills, cough. REASON FOR CONSULTATION: Elevated troponin. HPI: This is a 63-year-old male with history of non-STEMI, September 11, 2017 with bare-metal stent in the RCA, subsequently went to [facility] in [place] [facility] and underwent 2-vessel CAB[address] Dr. Atkinson on September 17, 2017, hypertension, diabetes, hyperlipidemia, BPH, and severe GI bleed in late September or early October 2017. Patient presents to [facility] ER after going to outside ER with complaints of shortness of breath, cough, fevers, chills. He was noted with positive flu A and also was noted with elevated troponin, therefore, patient was sent to [facility] ER for further evaluation. Cardiology was consulted. Patient seen in room. Reports in the past week since Saturday has been having coughing spells, shortness of breath, fevers, and chills. Reports his and daughter apparently had a flu, and subsequently patient went to the ER for shortness of breath and coughing, and was noted with flu and positive for flu A. Patient denies any chest pains through episode. States he is breathing much better since being admitted. PAST MEDICAL HISTORY: CAD, status post CABG, September 2017. Also with bare-metal stent in RCA, September 2017. Also GI bleed, hypertension, diabetes, hyperlipidemia, BPH. SURGICAL HISTORY: CABG x2, September 17, [address] Atkinson. Coronary stent, September 11, 2017. Sinus surgery, 1981. FAMILY HISTORY: Apparently mother with diabetes. Father at age 82, unknown. One sister apparently with history of bypass. Another sister with diabetes. Son with diabetes. SOCIAL HISTORY: He is . He is a former smoker. 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 Occasional alcohol use. ALLERGIES: NO KNOWN ALLERGIES. HOME MEDICATIONS: Include Plavix 75 mg once a day, atorvastatin 40 mg once a day, lisinopril 2.5 mg once a day, metoprolol 25 mg twice a day, spironolactone 25 mg once a day, Lasix 20 mg once a day, doxazosin 2 mg once a day, aspirin 81 mg once a day, NovoLog 8 units t.i.d., Levemir 12 units subcutaneous q.p.m. REVIEW OF SYSTEMS: GENERAL: Denies any weight changes. Positive for fatigue, weakness, fevers, and chills. SKIN-GUZMÁN: No rashes, no sores, no moles. HEENT: Denies any nausea, vomiting, vision changes, any blurred vision, double vision, any earaches, vertigo, discharge. Positive for stuffiness, sneezing. Denies any epistaxis. Positive for sore throat. Denies any hoarseness. CARDIAC: Denies any chest pain. Positive for dyspnea on exertion. Denies any orthopnea, any PND, any lower extremity edema. RESPIRATORY: Positive for shortness of breath. Positive for cough. Reports yellowish green in nature sputum. GI: Reports good appetite. No nausea, vomiting, diarrhea, constipation, any melena, hematemesis, any black tarry stools. URINARY: Positive for frequency and urgency. VASCULAR: Denies any lower extremity edema, any claudications. MUSCULOSKELETAL: Denies any muscle weakness. However, positive for generalized joint pains. NEUROLOGIC: Denies any numbness, tingling, any weakness, paralysis, fainting, blackout, seizures. HEMATOLOGY: Denies any anemia or easy bruising. ENDOCRINE: Denies any heat or cold intolerance, any polyuria, polydipsia. PHYSICAL EXAMINATION: VITAL SIGNS: Height 66 inches, weight 269 pounds, BMI 43. Current vital signs, temperature 96.5, pulse 84, respiratory rate 20, blood pressure 109/59, pulse ox 99% on 3 liters. GENERAL: In mild distress, reliable informant. SKIN-GUZMÁN: No rashes or bruises noted. Sternotomy scar. HEENT: Normocephalic. Pupils equal, round, and reactive. Extraocular movements intact. Trachea midline. Oral mucosa pink. NECK: No JVD, no thyroidmegaly noted. HEART: Regular rate and rhythm. PMI in about fourth to fifth intercostal space. LUNGS: Crackles and some rhonchi throughout. ABDOMEN: Soft, nontender, nondistended. No organomegaly noted. MUSCULOSKELETAL: Good muscle strength throughout. VASCULAR: +2 radial pulses, +1 DP and PT pulses bilaterally. NEUROLOGIC: Cranial nerves II through XII seem intact. LABS: From outside ER, positive flu A. White count 15, hemoglobin 12, hematocrit 34, platelets 176,000. Sodium 134, potassium 3.5, bicarb 16, BUN 19, creatinine 0.9. Troponins initial 2.1, next 1.7, next 1.4, downtrending. TSH is 0.8. Chest x-ray done at emergency department reports no acute cardiopulmonary disease. ASSESSMENT: 1. Influenza A positive. 2. Aza-AP-fkbpsuyyu myocardial infarction with presentation at the tail end of infarction by evidence of downtrending enzymes. 3. History of coronary artery disease, status post coronary artery bypass graft in September 2017. 4. Hypertension. 5. Diabetes. PLAN-GUZMÁN: 1. Patient presents with fevers, chills, shortness of breath for about 6-7 days with positive family history of influenza. Also patient with positive influenza A noted with elevated troponins, however, they have been downtrending from 2.1 to 1.7 and now 1.4 representing patient at the tail end of infarction. Patient denies any chest pain, however, he does have current symptoms from his influenza. Will treat patient aggressively with medications. Will load patient with Plavix. Will continue his cardiac medications, the aspirin, stain, beta sanjay. 2. Also, will obtain an echo to evaluate heart function structure. 3. Will adjust cardiac therapy as clinical course dictates. Thank you very much for this consult. Seen and examined Agree with note Medical Rx for now Dictated By: George Silva NP Job#: [id number] DR WHITE
[2018-09-08] MEDS: ASPIRIN 325 MG TAB EC PO SCH (12:30)
[2018-09-08] MEDS: CEFTRIAXONE SOD 1 GM/NS 50 ML 50 ML IV SCH (12:30)
[2018-09-08] MEDS: FAMOTIDINE 20 MG TAB PO SCH ×2 (12:30→16:30)
--- NOTE | 2018-09-08 13:00 | NUR ---
SCDS ON BOTH LEGS
--- NOTE | 2018-09-08 13:00 | NUR ---
ASSESSMENT: Spiritual distress Pt saddened as anniversary of heart attack approaches. Pt states on 09/10/17 he had a heart attack that required "open-heart surgery." Pt states he wants to his "little kids" grow up. Intervention: Provided unhurried, calming pastoral presence and supportive listening. Facilitated illness review and identification of emotions. Provided prayer. Outcome: Pt expressed appreciation for visit. Will follow as able. DALAI MERCADO [employer] Spiritual Care Department O: [phone] Pager: [phone] ([phone] number calling from)
--- NOTE | 2018-09-08 13:00 | NUR ---
TALKED DR ACKERMAN REGARDING FLU SHOT HE SAID NOT THIS TIME
[2018-09-08] MEDS: AZITHROMYCIN 500MG/NS 250 ML 250 ML IV SCH (13:56)
--- NOTE | 2018-09-08 14:21 | History and Physical ---
PRIMARY CARE PROVIDER: Is [facility]. He has seen Dr. Capellan here for cardiology before. CHIEF COMPLAINT: Shortness of breath, wheezing, chest pain. HISTORY OF PRESENT ILLNESS: Mr. Barr is a 63-year-old gentleman with a history of hypertension, type 2 diabetes and coronary artery disease with previous CABG. He presents with shortness of breath and wheezing along with some chest discomfort. The patient on chest x-ray was found to have right lower lobe pneumonia and his flu screen was positive. He was given nebs and Solu-Medrol at an outside ER prior to admission here. REVIEW OF SYSTEMS CONSTITUTIONAL: He denies fever, chills or weight loss. HEENT: He denies sinus congestion although does have some allergy issues. CHEST: He has chest pain. No diaphoresis or palpitations. He has shortness of breath, wheezing and nonproductive cough. GASTROINTESTINAL: He denies abdominal pain, nausea, vomiting or melena. CUTANEOUS: He denies rash or pruritus. MUSCULOSKELETAL. He denies joint pain or swelling. HEMATOLOGY: Denies bleeding or bruising. NEUROLOGIC: He denies headache, vertigo or loss of consciousness. PAST MEDICAL HISTORY: Significant for longstanding type 2 diabetes and hypertension. He had an MRI a year ago in August, had a stent placed and then subsequently had 2-vessel coronary artery bypass surgery. He did have some resulting chronic systolic heart failure, wore a LifeVest for a couple of months but avoided a pacemaker or AICD placement. His ejection fraction has improved some since the bypass and he has a stable rhythm. He has a history of 2-vessel CABG. No other surgery. MEDICATIONS 1. Lipitor 40 mg at bedtime. 2. Plavix 75 mg daily. 3. Cardura 2 mg daily. 4. Lasix 20 mg daily. 5. Glipizide 10 mg daily. 6. Lisinopril 2.5 mg daily. 7. Potassium 10 mEq daily. 8. Aspirin 81 mg daily. ALLERGIES: HE HAS NO KNOWN DRUG ALLERGIES BUT DOES HAVE AN ALLERGY TO POLLEN. FAMILY HISTORY: Significant for hypertension and diabetes. SOCIAL HISTORY: The patient is . He is bilingual. He speaks pretty good [place]ib[place]ian. He does not smoke, drink or use illegal drugs. He has not had anything to drink in 2 years. He was a moderate drinker prior to that. He is independently functioning. PHYSICAL EXAM PSYCHIATRIC: He is alert and oriented x3 with normal mood and affect. CONSTITUTIONAL: He is morbidly obese with a BMI of 43.41. He is in no acute distress. VITAL SIGNS: Blood pressure 130/63. Pulse 100 and regular. Respiratory rate 18. O2 sat 94% on 2 liter nasal cannula. Temperature 95.7. He has been afebrile since admission. HEENT: His head is atraumatic. His eyes are anicteric with clear conjunctiva. Ears and nares are without erythema or discharge. Oropharynx is clear. NECK: Supple. No mass or thyromegaly. LYMPHATIC SYSTEM: He has no palpable cervical axillary or inguinal adenopathy. CARDIOVASCULAR: His heart has a regular rate and rhythm without murmur or extra sounds. He has no carotid bruit. No peripheral edema. Weak dorsal pedal pulses. RESPIRATORY: Lungs are clear to auscultation and percussion. Perhaps some mild dullness at the right base. He has a nonproductive cough and wheezing and is in no respiratory distress. Has normal respiratory effort. GASTROINTESTINAL: His abdomen is soft without organomegaly, masses or tenderness. He has normal bowel sounds present. CUTANEOUS: His skin is warm and dry to touch with no rash or skin breakdown. MUSCULOSKELETAL: His joints are in normal alignment without erythema or swelling. He has no calf tenderness. NEUROLOGIC: Exam is nonfocal with intact cranial nerves and no motor or sensory deficits. DIAGNOSTIC STUDIES: Chest x-ray shows patchy opacity in the right lower lung. His flu screen was positive. TSH 0.587. His troponin was elevated at 1.4 at the outside ER. His troponins here 2.116, 1.755, and 1.401, all elevated. His A1c level is 6.5. Cholesterol 86, triglycerides 65, HDL 24, LDL 49. His chemistry profile shows normal electrolytes, CO2 16, creatinine 0.90, creatinine 18, glucose 280, calcium 8.7. Transaminases, bilirubin, alk phos are normal. CBC shows a white count of 15.5 with 89% neutrophils, hemoglobin 12.3, hematocrit 34.9, and platelet count 176,000. IMPRESSIONS AND PLANS 1. Chest pain/acute coronary syndrome. Patient has had 3 positive troponins. Acetylsalicylic acid and Plavix have been given. Cardiology has been consulted. 2. Flu positive pneumonia. Patient has been started on Tamiflu. 3. Right lower lobe pneumonia. The patient has also been started on intravenous Rocephin and Zithromax. 4. Asthma exacerbation. The patient has received aggressive nebulizers and intravenous Solu-Medrol as well as the intravenous antibiotic noted above. 5. Type 2 diabetes, which is controlled. The patient will continue glipizide and sliding scale insulin. 6. Hypertension with coronary artery disease and chronic systolic heart failure. Will continue lisinopril, metoprolol, Lasix and Lipitor, as well as aspirin and Plavix. 7. For prophylaxis, the patient will be using sequential compression devices for deep venous thrombosis prophylaxis and Pepcid for gastrointestinal prophylaxis. Job#: [id number] DEBORA
--- NOTE | 2018-09-08 18:46 | NUR ---
PT RESTING ON BED BED SIDE REPORT GIVEN TO ONCOMING NURSE
[2018-09-08] MEDS: DOXAZOSIN MESYLATE 2 MG TAB PO SCH (21:00)
[2018-09-08] MEDS: ATORVASTATIN 40 MG TAB PO SCH (21:00)
[2018-09-09] VITALS (8 sets, daily range): BP systolic 107–125; BP diastolic 59–79
[2018-09-09] MEDS: CEFTRIAXONE SOD 1 GM/NS 50 ML 50 ML IV SCH ×2 (00:33→12:30)
[2018-09-09] MEDS: METHYLPREDNISOLONE SOD SUCC 40 MG/ML VIAL 1ML IV SCH ×3 (01:00→16:56)
[2018-09-09] MEDS: ALBUTEROL/IPRATROPIUM 3 ML NEB NEB SCH ×6 (03:15→23:00)
[2018-09-09 05:59] LABS: ALANINE AMINOTRANSFERASE 36 IU/L (0-55); ALBUMIN 2.8 g/dL (3.5-5.0); ALBUMIN/GLOBULIN RATIO 0.9 (0.8-2.0); ALKALINE PHOSPHATASE 70 IU/L (40-150); BLOOD UREA NITROGEN 21 mg/dL (7-26); BUN/CREATININE RATIO 27 (6-25); CALCIUM 8.3 mg/dL (8.4-10.2); CARBON DIOXIDE 22 mmol/L (22-29); CHLORIDE 104 mmol/L (98-107); CHOL/HDL RATIO 3.7 (3.9-4.7); CHOLESTEROL 89 MD/DL (0-199); CREATININE, SERUM 0.78 mg/dL (0.72-1.25); EST GLOMERULAR FILTRATION RATE > 60 ML/MIN (60-); GLUCOSE 237 mg/dL (74-118); HDL CHOLESTEROL 24 MG/DL (40-60); LDL CHOLESTEROL 52 MG/DL (60-130); SODIUM 135 mmol/L (136-145); TRIGLYCERIDES 67 MG/DL (0-149)
[2018-09-09 06:10] LABS: BASOPHILS % 0.2 % (0.0-1.0); HEMATOCRIT 36.6 % (38.2-49.6); LYMPHOCYTES # (AUTO) 0.9 (1.0-3.2); LYMPHOCYTES % 3.8 % (18.0-39.1); MEAN CORPUSCULAR HEMOGLOBIN 26.5 pg (28-32); MEAN CORPUSCULAR HGB CONC 32.8 g/dL (31-35); MEAN CORPUSCULAR VOLUME 80.8 fL (81-99); MONOCYTES # (AUTO) 1.3 (0.2-0.8); MONOCYTES % 5.8 % (4.4-11.3); NEUTROPHILS # (AUTO) 20.6 (2.1-6.9); NEUTROPHILS % 89.1 % (38.7-80.0); PLATELET COUNT 211 x10e3/uL (140-360); RED BLOOD COUNT 4.53 x10e6/uL (4.3-5.7); RED CELL DISTRIBUTION WIDTH 15.3 % (11.7-14.4)
[2018-09-09 06:19] LABS: THYROID STIMULATING HORMONE 0.475 uIU/mL (0.350-4.940)
[2018-09-09] MEDS: INSULIN REGULAR, HUMAN 100 UNIT/1 ML 3ML VIAL SQ SCH ×4 (07:30→21:00)
[2018-09-09] MEDS: FAMOTIDINE 20 MG TAB PO SCH ×2 (07:30→16:30)
[2018-09-09] MEDS: ASPIRIN 325 MG TAB EC PO SCH (08:57)
[2018-09-09] MEDS: FUROSEMIDE 20 MG TAB PO SCH (08:58)
[2018-09-09] MEDS: GLIPIZIDE 5 MG TAB PO SCH (08:58)
[2018-09-09] MEDS: POTASSIUM CHLORIDE 10MEQ EA PO SCH (08:58)
[2018-09-09] MEDS: CLOPIDOGREL BISULFATE 75 MG TAB PO SCH (09:00)
[2018-09-09] MEDS: OSELTAMIVIR PHOSPHATE 75 MG CAP PO SCH ×2 (09:00→16:56)
[2018-09-09] MEDS: LISINOPRIL 2.5 MG TAB PO SCH (09:00)
[2018-09-09] MEDS: METOPROLOL TARTRATE 25 MG TAB PO SCH ×2 (09:00→16:56)
--- NOTE | 2018-09-09 10:55 | NUR ---
ASSESSMENT: Spiritual concern Follow up visit. Pt reflecting on experiences of sharing his nicolasa. Intervention: Provided unhurried pastoral presence. Outcome: Pt expressed appreciation for visit. DALIA Frostlain Spiritual Care Department O: [phone] Pager: [phone] ([phone] number calling from)
[2018-09-09] MEDS: AZITHROMYCIN 500MG/NS 250 ML 250 ML IV SCH (13:36)
--- NOTE | 2018-09-09 16:45 | NUR ---
Attempted to see pt, he is in the shower. Will come back at a later time
--- NOTE | 2018-09-09 18:46 | NUR ---
PT RESTING ON BED BED SIDE REPORT GIVEN TO ONCOMING NURSE
[2018-09-09] MEDS: ATORVASTATIN 40 MG TAB PO SCH (21:00)
[2018-09-09] MEDS: DOXAZOSIN MESYLATE 2 MG TAB PO SCH (21:00)
[2018-09-09] MEDS: INSULIN GLARGINE 100 UNITS/ML ML SC SCH (21:50)
[2018-09-10] VITALS (7 sets, daily range): BP systolic 111–124; BP diastolic 61–71
[2018-09-10] MEDS: CEFTRIAXONE SOD 1 GM/NS 50 ML 50 ML IV SCH ×2 (00:12→13:11)
[2018-09-10] MEDS: METHYLPREDNISOLONE SOD SUCC 40 MG/ML VIAL 1ML IV SCH ×3 (00:12→18:18)
[2018-09-10] MEDS: ALBUTEROL/IPRATROPIUM 3 ML NEB NEB SCH ×5 (03:25→19:30)
[2018-09-10 05:25] LABS: BASOPHILS % 0.2 % (0.0-1.0); HEMATOCRIT 37.6 % (38.2-49.6); LYMPHOCYTES # (AUTO) 1.1 (1.0-3.2); LYMPHOCYTES % 5.5 % (18.0-39.1); MEAN CORPUSCULAR HEMOGLOBIN 26.1 pg (28-32); MEAN CORPUSCULAR HGB CONC 31.9 g/dL (31-35); MEAN CORPUSCULAR VOLUME 81.9 fL (81-99); MONOCYTES # (AUTO) 1.3 (0.2-0.8); MONOCYTES % 6.2 % (4.4-11.3); NEUTROPHILS # (AUTO) 17.4 (2.1-6.9); NEUTROPHILS % 86.1 % (38.7-80.0); PLATELET COUNT 241 x10e3/uL (140-360); RED BLOOD COUNT 4.59 x10e6/uL (4.3-5.7); RED CELL DISTRIBUTION WIDTH 15.4 % (11.7-14.4)
[2018-09-10 05:47] LABS: ANION GAP 14.3 mmol/L (8-16); BLOOD UREA NITROGEN 23 mg/dL (7-26); BUN/CREATININE RATIO 26 (6-25); CALCIUM 8.5 mg/dL (8.4-10.2); CARBON DIOXIDE 21 mmol/L (22-29); CHLORIDE 106 mmol/L (98-107); CREATININE, SERUM 0.88 mg/dL (0.72-1.25); EST GLOMERULAR FILTRATION RATE > 60 ML/MIN (60-); GLUCOSE 255 mg/dL (74-118); MAGNESIUM 2.3 MG/DL (1.3-2.1); POTASSIUM 4.3 mmol/L (3.5-5.1); SODIUM 137 mmol/L (136-145)
--- NOTE | 2018-09-10 06:16 | Diagnostic Imaging Report ---
EXAM: XR CHEST 1 VIEW DATE: 09/10/2018 5:00 AM INDICATION: Pneumonia COMPARISON: 09/08/2018, no report available FINDINGS: Lines and Tubes: None Heart and Mediastinum: No acute cardiomediastinal findings. Stable sternotomy wires. Lungs and Pleura: Patchy basilar opacities, stable. Bones and Soft Tissues: No acute findings. IMPRESSION: 1. No significant change. Signed by: Dr. Fransisco Davis MD on 09/10/2018 6:13 AM
[2018-09-10] MEDS: FAMOTIDINE 20 MG TAB PO SCH ×2 (07:30→16:30)
[2018-09-10] MEDS: INSULIN REGULAR, HUMAN 100 UNIT/1 ML 3ML VIAL SQ SCH ×3 (07:30→18:18)
--- NOTE | 2018-09-10 07:45 | NUR ---
The pt. is in bed awake and positioned on the left side. The pt. denied pain or discomfort at bedside rounding.
[2018-09-10] MEDS: ASPIRIN 325 MG TAB EC PO SCH (08:45)
[2018-09-10] MEDS: FUROSEMIDE 20 MG TAB PO SCH (08:45)
[2018-09-10] MEDS: LISINOPRIL 2.5 MG TAB PO SCH (08:46)
[2018-09-10] MEDS: OSELTAMIVIR PHOSPHATE 75 MG CAP PO SCH ×2 (08:46→18:19)
[2018-09-10] MEDS: METOPROLOL TARTRATE 25 MG TAB PO SCH ×2 (08:46→18:19)
[2018-09-10] MEDS: CLOPIDOGREL BISULFATE 75 MG TAB PO SCH (08:46)
[2018-09-10] MEDS: INSULIN GLARGINE 100 UNITS/ML ML SC SCH (08:47)
[2018-09-10] MEDS: GLIPIZIDE 5 MG TAB PO SCH (08:48)
[2018-09-10] MEDS: POTASSIUM CHLORIDE 10MEQ EA PO SCH (08:48)
--- NOTE | 2018-09-10 10:59 | NUR ---
Iv to the right wrist is infiltrated and discontinued.
--- NOTE | 2018-09-10 14:40 | NUR ---
CASE MANAGEMENT INITIAL ASSESSMENT Assembler [place] to bedside to discuss plan of care with patient/family. CM/SW role and care transitions discussed. Anticipated discharge plan discussed along with duration of care. CM/SW discussed patients right to make decisions in care. CM/SW work hours given. Patient lives: with his and two kids Admit/Transfer: thru ED Hospital/ER visits since last admit: had open heart surgery in Sep 2017, stated he was in the hospital once since then POA/Emergency contact: Hossein Barr [phone] Current/Previous Home Health: none PCP/Follow-up Care: Dr. Desiree Bergeron - PCP, Dr. Capellan - cardiology; States his PCP told him to come in the day after discharge from hospital. Pt also states he will make a follow up appointment with Dr. Capellan. Current/Previous DME: none; pt is independent and drives Medications (referring to index hospitalization or the first time you were in the hospital) a. Were changes made in your medications when you were in the hospital on [date of index hospitalization]? yes b. Did you understand the changes? yes c. Were you able to obtain your new medications right away? yes d. Were you able to take your medications like the doctor wanted you to? yes e. Did the hospital give you an accurate, easy to understand list of medications when you left? yes Scale of 1-10 how comfortable does patient feel with disease management in outpatient settin Other Services: none Employment Status: unemployed Areas of Concerns: n/a Referral Needs: none Education Needs: medical management IMM/VARMA given and signed (if applicable): n/a Goal for discharge: home as soon as possible CM/SW left business card at the bedside with contact information. Name and number was also written on the patients whiteboard. Patient verbalized understanding of discussion. CM will follow-up with ongoing discharge and transition of care needs.
[2018-09-10] MEDS: AZITHROMYCIN 500MG/NS 250 ML 250 ML IV SCH (14:53)
[2018-09-10] MEDS ORDERED: LEVAQUIN500 MG PO (18:33)
[2018-09-10] MEDS ORDERED: TAMIFLU75 MG PO (18:33)
[2018-09-10] MEDS ORDERED: MUCINEX DM ER1 EACH PO (18:33)
--- NOTE | 2018-09-10 19:45 | NUR ---
pt given discharge instructions and discharge folder. pt verbalized understanding. no co pain or distress noted upon discharge. left hand 20g iv discontinued, catheter tip intact, pressure and drsg applied to site. pt wheeled to private auto.
--- NOTE | 2018-09-11 01:32 | Discharge Summary ---
The patient's primary is not at this hospital. ADMITTING DIAGNOSES 1. Non-ST elevation myocardial infarction. 2. Influenza. 3. Right lower lobe pneumonia. 4. Acute asthma exacerbation. 5. Type 2 diabetes. 6. Hypertension with coronary artery disease and chronic systolic heart failure. DISCHARGE DIAGNOSES 1. Non-ST elevation myocardial infarction. 2. Influenza. 3. Right lower lobe pneumonia. 4. Acute asthma exacerbation. 5. Type 2 diabetes. 6. Hypertension with coronary artery disease and chronic systolic heart failure. BRIEF HISTORY: Mr. Barr is a 63-year-old gentleman presenting with fever; cough; chest congestion; chest pain, pleuritic in nature; elevated troponin at an outside ER and positive flu screen. HOSPITAL COURSE: The patient was admitted to the floor. His troponins were a little bit elevated, peaked at about 2. He was seen by his box office manager here who did not feel like he needed any further invasive workup at this time. We will follow him as an outpatient. He was treated with Tamiflu for the flu and Rocephin and Zithromax for the right lower lobe pneumonia. He was given nebs and steroids for the asthma exacerbation, Levemir and sliding scale insulin for the diabetes. His A1c level was 6.5. The patient steadily improved while he was in the hospital. On the day of discharge, he was on room air without oxygen with a 95% saturation. He was afebrile. He had already completed 3 days of Tamiflu and was feeling much better and was discharged home to complete his Tamiflu. He will be sent home with Levaquin for the pneumonia along with Mucinex DM. He can resume the rest of his home meds. DIET: A diabetic diet. ACTIVITY: As tolerated. FOLLOWUP: With his PCP within 2 weeks. JEFERSON ACKERMAN MD Job#: [id number]
== END 2018-09-10 20:00 | disposition home or self-care (01) | DRG 193 ==
LOC: MED/SURG2 13:05
PROVIDERS: ADMIT Internal Medicine; ATTEND Internal Medicine
DX: J10.00 Influenza due to other identified influenza virus with unspecified type of pneumonia (principal); I21.4 Non-ST elevation (NSTEMI) myocardial infarction; I50.22 Chronic systolic (congestive) heart failure; J45.901 Unspecified asthma with (acute) exacerbation; Z68.41 Body mass index [BMI] 40.0-44.9, adult; I11.0 Hypertensive heart disease with heart failure; I25.10 Atherosclerotic heart disease of native coronary artery without angina pectoris; Z95.1 Presence of aortocoronary bypass graft; I25.2 Old myocardial infarction; Z95.5 Presence of coronary angioplasty implant and graft; E11.9 Type 2 diabetes mellitus without complications; E78.5 Hyperlipidemia, unspecified; E66.01 Morbid (severe) obesity due to excess calories; N40.0 Benign prostatic hyperplasia without lower urinary tract symptoms; Z87.19 Personal history of other diseases of the digestive system; Z87.891 Personal history of nicotine dependence; Z79.02 Long term (current) use of antithrombotics/antiplatelets; Z79.82 Long term (current) use of aspirin; Z79.4 Long term (current) use of insulin; Z91.048 Other nonmedicinal substance allergy status
CPT/HCPCS: 36415; 71045; 71046; 80048; 80053; 80061; 82270; 82550; 82553; 82948; 83036; 83735; 83880; 84443; 84484; 85025; 93005; 93306; 94640; J0456; J0696; J1815; J2920